=== PATIENT | female | born 1960 | race Caucasian/White ===

== ENCOUNTER → 2016-08-23 | Outpatient (REF) | payer OTHER ==
[~2016-08-23] MED LIST: AMOX875T PO; CIPR500T19; CLIN1CAP5 PO; FERR325T PO; FURO20TA2 PO; FURO40TA2 PO; IBUP60TA PO; IMOD2TAB16 PO; IRBE150T12 PO; LORA10TA2 PO; OMEP40CA2 PO; POTA10CA PO; PRIL40CA; PRIM50TA6 PO; PROP1TAB29 PO; RENV2TAB PO; TYLE650T35 PO; VICO5TAB; VITA10002 PO; VITA200038 PO; VITA50003 PO; ZOLP5TAB PO
[2016-08-23 11:35] LABS: BASO % 0.4 % (0.0-1.0); LARGE UNSTAINED CELL # 0.1 K/mm3 (0.0-0.4); LARGE UNSTAINED CELL % 1.2 % (0.0-4.0); LYMPH # 1.7 K/mm3 (1.5-4.5); LYMPH % 35.8 % (24.0-44.0); MEAN CORPUSCULAR HEMOGLOBIN 34.1 pg (27.0-33.0); MEAN CORPUSCULAR HGB CONC 34.2 g/dl (32.0-36.5); MEAN CORPUSCULAR VOLUME 99.9 fl (80.0-96.0); MONO # 0.2 K/mm3 (0.0-0.8); MONO % 4.8 % (0.0-5.0); NEUTROPHILS # 2.6 K/mm3 (1.8-7.7); NEUTROPHILS % 56.8 % (36.0-66.0); PLATELET COUNT, AUTOMATED 152 k/mm3 (150-450); RED CELL DISTRIBUTION WIDTH 12.8 % (11.5-14.5); WHITE BLOOD COUNT 4.5 K/mm3 (4.0-10.0)
[2016-08-23 11:38] LABS: ALBUMIN 3.6 GM/DL (3.2-5.2); ALBUMIN/GLOBULIN RATIO 1.06 (1.00-1.93); ALKALINE PHOSPHATASE 97 U/L (45-117); ALT/SGPT 29 U/L (12-78); ANION GAP 6 MEQ/L (8-16); AST/SGOT 37 U/L (15-37); BILIRUBIN,TOTAL 0.7 MG/DL (0.2-1.0); BLOOD UREA NITROGEN 7 MG/DL (7-18); CALCIUM LEVEL 9.4 MG/DL (8.5-10.1); CARBON DIOXIDE LEVEL 33 MEQ/L (21-32); CHLORIDE LEVEL 95 MEQ/L (98-107); CREATININE FOR GFR 0.65 MG/DL (0.55-1.02); GLOMERULAR FILTRATION RATE > 60.0 (>51); GLUCOSE, FASTING 126 MG/DL (70-105); PERCENT SATURATION 47.2 % (13.2-37.4); POTASSIUM SERUM 4.9 MEQ/L (3.5-5.1); SODIUM LEVEL 134 MEQ/L (136-145); TOTAL IRON BINDING CAPACITY 324 UG/DL (250-450)
== END ==
LOC: M SFHCPLAZ 07:57
PROVIDERS: ATTEND Nurse Practitioner Family
DX: D50.9 Iron deficiency anemia, unspecified (principal); I10 Essential (primary) hypertension

== ENCOUNTER → 2016-11-15 | Outpatient (CLI) | payer OTHER ==
[2016-11-15 13:05] LABS: ALBUMIN 3.4 GM/DL (3.2-5.2); ALBUMIN/GLOBULIN RATIO 0.92 (1.00-1.93); ALKALINE PHOSPHATASE 93 U/L (45-117); ALT/SGPT 35 U/L (12-78); ANION GAP 7 MEQ/L (8-16); AST/SGOT 43 U/L (15-37); BILIRUBIN,TOTAL 0.8 MG/DL (0.2-1.0); BLOOD UREA NITROGEN 4 MG/DL (7-18); CARBON DIOXIDE LEVEL 31 MEQ/L (21-32); CHLORIDE LEVEL 96 MEQ/L (98-107); CREATININE FOR GFR 0.68 MG/DL (0.55-1.02); GLOMERULAR FILTRATION RATE > 60.0 (>51); GLUCOSE, FASTING 125 MG/DL (70-105); POTASSIUM SERUM 4.7 MEQ/L (3.5-5.1); SODIUM LEVEL 134 MEQ/L (136-145); TOTAL PROTEIN 7.1 GM/DL (6.4-8.2)
== END ==
LOC: M WUC 08:37
PROVIDERS: ATTEND Nurse Practitioner Family
DX: R73.01 Impaired fasting glucose (principal); I10 Essential (primary) hypertension

== ENCOUNTER → 2017-01-02 | Outpatient (CLI) | payer OTHER ==
[~2017-01-02] MED LIST changes: +CLIN150C14 PO; -CLIN1CAP5 PO; +FERR1TAB8 PO; -FERR325T PO; +IBUP1TAB6 PO; -IBUP60TA PO; +VITA1CAP40 PO; -VITA50003 PO
--- NOTE | 2017-01-02 08:51 | REPMRS ---
Patient History The patient states she had a clinical breast exam in 01/10 Baseline Mammogram Patient is postmenopausal. Family history of colorectal cancer in father at age 50 or over, pancreatic cancer in sister under age 50, and pancreatic cancer in mother under age 50. Digital Woman Screen Mammo: January 02, 2017 - Exam #: [id number] Bilateral CC and XCCL view(s) were taken. MLO view(s) were taken of the right breast. Technologist: Dorothy Moore, Technologist FINDINGS: There are scattered fibroglandular densities. There is no evidence of cancer on this mammogram. Large coarse benign appearing calcifications are present.Scattered lymph nodes are seen in the axilla. ASSESSMENT: BI-RADS/ACR category 2 mammogram. Benign finding(s). Recommendation Routine screening mammogram of both breasts in 1 year (for women over age 40). This mammogram was interpreted with the aid of an FDA-approved computer-aided dectection system. Electronically Signed By: Jones Momin MD 01/02/17 0875
== END ==
LOC: M WHC 06:38
PROVIDERS: ATTEND Nurse Practitioner Family
DX: Z12.31 Encounter for screening mammogram for malignant neoplasm of breast (principal)

== ENCOUNTER → 2017-02-26 | Outpatient (REF) | payer OTHER | LOC: M LABDRAWP 11:30 | PROVIDERS: ATTEND Internal Medicine Cardiovascular Disease | DX: E78.5 Hyperlipidemia, unspecified (principal); I10 Essential (primary) hypertension; E66.9 Obesity, unspecified ==

== ENCOUNTER → 2017-09-26 | Outpatient (REF) | payer OTHER ==
[2017-09-26 11:42] LABS: BASO % 0.7 % (0.0-1.0); EOS % 0.7 % (0.0-3.0); HEMATOCRIT 42.8 % (36.0-47.0); HEMOGLOBIN 15.2 g/dl (12.0-15.5); IMMATURE GRANULOCYTE % 0.2 % (0-3.0); LYMPH # 1.6 10^3/uL (1.5-4.5); LYMPH % 37.4 % (24.0-44.0); MEAN CORPUSCULAR HEMOGLOBIN 34.5 pg (27.0-33.0); MEAN CORPUSCULAR HGB CONC 35.5 g/dl (32.0-36.5); MEAN CORPUSCULAR VOLUME 97.1 fl (80.0-96.0); MONO # 0.2 10^3/uL (0.0-0.8); MONO % 4.3 % (0.0-5.0); NEUTROPHILS # 2.5 10^3/uL (1.8-7.7); NEUTROPHILS % 56.7 % (36.0-66.0); PLATELET COUNT, AUTOMATED 159 10^3/uL (150-450); RED BLOOD COUNT 4.41 10^6/uL (4.00-5.40); RED CELL DISTRIBUTION WIDTH 11.9 % (11.5-14.5); WHITE BLOOD COUNT 4.4 10^3/uL (4.0-10.0)
[2017-09-26 12:17] LABS: ALBUMIN 3.7 GM/DL (3.2-5.2); ALBUMIN/GLOBULIN RATIO 1.09 (1.00-1.93); ALKALINE PHOSPHATASE 85 U/L (45-117); ALT/SGPT 22 U/L (12-78); ANION GAP 7 MEQ/L (8-16); AST/SGOT 21 U/L (7-37); BILIRUBIN,TOTAL 0.8 MG/DL (0.2-1.0); BLOOD UREA NITROGEN 8 MG/DL (7-18); CALCIUM LEVEL 8.6 MG/DL (8.5-10.1); CARBON DIOXIDE LEVEL 28 MEQ/L (21-32); CHLORIDE LEVEL 100 MEQ/L (98-107); CHOLESTEROL LEVEL 247 MG/DL (<200); CREATININE FOR GFR 0.66 MG/DL (0.55-1.30); FREE T4 0.97 NG/DL (0.76-1.46); GLOMERULAR FILTRATION RATE > 60.0 (>51); GLUCOSE, FASTING 109 MG/DL (70-100); IRON (FE) 206 UG/DL (50-170); PERCENT SATURATION 73.3 % (13.2-45.0); POTASSIUM SERUM 4.5 MEQ/L (3.5-5.1); SODIUM LEVEL 135 MEQ/L (136-145); TOTAL IRON BINDING CAPACITY 281 UG/DL (250-450); TOTAL PROTEIN 7.1 GM/DL (6.4-8.2); TRIGLYCERIDES LEVEL 69 MG/DL (<150)
[2017-09-26 13:09] LABS: CHOLESTEROL RISK RATIO 1.506 (<5); LDL CHOLESTEROL 69.2 MG/DL (<100); NON-HDL-C 83 MG/DL
[2017-09-26 13:23] LABS: HDL CHOLESTEROL 164 MG/DL (>40)
[2017-09-26 14:13] LABS: CREATININE, URINE 51.1 MG/DL; MALB URINE SIEMENS < 5.0 MG/L; MAU/CREAT RATIO 9.7 MCG/MG (0.0-30.0)
== END ==
LOC: M SFHCPLAZ 09:16
DX: E78.5 Hyperlipidemia, unspecified (principal); I10 Essential (primary) hypertension; D50.9 Iron deficiency anemia, unspecified
CPT/HCPCS: 83550

== ENCOUNTER → 2017-12-26 | Outpatient (CLI) | payer OTHER ==
[2017-12-30 00:06] LABS: F013-IGE PEANUT <0.10 kU/L (Class 0); I002-IgE HORNET, WHITE FACE 0.16 kU/L (Class 0/I); I003-IgE YELLOW JACKET 2.13 kU/L (Class III); I004-IgE PAPER WASP <0.10 kU/L (Class 0); I005-IgE HORNET, YELLOW <0.10 kU/L (Class 0)
== END ==
LOC: M SMT 10:29
DX: Z91.010 Allergy to peanuts (principal); T50.905A Adverse effect of unspecified drugs, medicaments and biological substances, initial encounter
CPT/HCPCS: 82785

== ENCOUNTER → 2018-02-20 | Outpatient (CLI) | payer OTHER ==
[2018-02-20 14:34] LABS: ALBUMIN 3.7 GM/DL (3.2-5.2); ALBUMIN/GLOBULIN RATIO 1.28 (1.00-1.93); ALKALINE PHOSPHATASE 83 U/L (45-117); ALT/SGPT 20 U/L (12-78); ANION GAP 8 MEQ/L (8-16); AST/SGOT 18 U/L (7-37); BILIRUBIN,TOTAL 0.5 MG/DL (0.2-1.0); BLOOD UREA NITROGEN 7 MG/DL (7-18); CALCIUM LEVEL 9.3 MG/DL (8.5-10.1); CARBON DIOXIDE LEVEL 29 MEQ/L (21-32); CHLORIDE LEVEL 103 MEQ/L (98-107); CREATININE FOR GFR 0.55 MG/DL (0.55-1.30); GLOMERULAR FILTRATION RATE > 60.0 (>51); GLUCOSE, FASTING 102 MG/DL (70-100); POTASSIUM SERUM 4.8 MEQ/L (3.5-5.1); SODIUM LEVEL 140 MEQ/L (136-145); TOTAL PROTEIN 6.6 GM/DL (6.4-8.2)
== END ==
LOC: M SMT 09:47
DX: I10 Essential (primary) hypertension (principal)
CPT/HCPCS: 80053

== ENCOUNTER 2018-05-06 07:00 | Outpatient (RCR) | payer OTHER ==
[~2018-05-06 07:00] MED LIST changes: +KLOR10TA76 PO; +LORA-243 PO; -LORA10TA2 PO; -POTA10CA PO; -PROP1TAB29 PO; +PROP20TA72 PO; -VITA1CAP40 PO; +VITA50005 PO
== END 2018-05-27 ==
LOC: M OT 07:00
PROVIDERS: ATTEND Physician Assistant
DX: M72.0 Palmar fascial fibromatosis [Dupuytren] (principal)

== ENCOUNTER → 2018-10-23 | Outpatient (CLI) | payer OTHER ==
[2018-10-23 12:51] LABS: HEMATOCRIT 40.7 % (36.0-47.0); HEMOGLOBIN 14.1 g/dl (12.0-15.5); MEAN CORPUSCULAR HEMOGLOBIN 34.4 pg (27.0-33.0); MEAN CORPUSCULAR HGB CONC 34.6 g/dl (32.0-36.5); MEAN CORPUSCULAR VOLUME 99.3 fl (80.0-96.0); PLATELET COUNT, AUTOMATED 150 10^3/uL (150-450); WHITE BLOOD COUNT 4.1 10^3/uL (4.0-10.0)
[2018-10-23 12:59] LABS: ALBUMIN 3.8 GM/DL (3.2-5.2); ALT/SGPT 15 U/L (12-78); BILIRUBIN,TOTAL 0.7 MG/DL (0.2-1.0); BLOOD UREA NITROGEN 7 MG/DL (7-18); CARBON DIOXIDE LEVEL 28 MEQ/L (21-32); CHLORIDE LEVEL 102 MEQ/L (98-107); CHOLESTEROL LEVEL 221 MG/DL (<200); CHOLESTEROL RISK RATIO 1.556 (<5); GLOMERULAR FILTRATION RATE > 60.0 (>51); GLUCOSE, FASTING 104 MG/DL (70-100); HDL CHOLESTEROL 142 MG/DL (>40); LDL CHOLESTEROL 67 MG/DL (<100); NON-HDL-C 79 MG/DL; POTASSIUM SERUM 4.6 MEQ/L (3.5-5.1); SODIUM LEVEL 136 MEQ/L (136-145); TOTAL PROTEIN 6.5 GM/DL (6.4-8.2); TRIGLYCERIDES LEVEL 60 MG/DL (<150)
[2018-10-23 13:07] LABS: TOTAL 25(OH) VITAMIN D 25.5 NG/ML (30.0-100.0); VITAMIN B12 LEVEL 977 PG/ML (247-911)
[2018-10-23 13:31] LABS: HEMOGLOBIN A1c 5.1 %
[2018-10-23 13:45] LABS: CREATININE, URINE 82.8 MG/DL; MAU/CREAT RATIO 8.4 MCG/MG (0.0-30.0)
== END ==
LOC: M WUC 08:36
PROVIDERS: ATTEND Family Medicine
DX: K21.9 Gastro-esophageal reflux disease without esophagitis (principal); I10 Essential (primary) hypertension; E78.5 Hyperlipidemia, unspecified; Z98.84 Bariatric surgery status

== ENCOUNTER → 2018-11-25 | Outpatient (REF) | payer OTHER ==
[~2018-11-25] MED LIST changes: +CYAN100049 PO; -VITA10002 PO
[2018-11-25 20:04] LABS: BASO % 0.5 % (0.0-1.0); EOS # 0.1 10^3/uL (0.0-0.50); EOS % 1.5 % (0.0-3.0); HEMATOCRIT 40.5 % (36.0-47.0); HEMOGLOBIN 13.8 g/dl (12.0-15.5); LYMPH # 1.7 10^3/uL (1.5-4.5); LYMPH % 42.1 % (24.0-44.0); MEAN CORPUSCULAR HEMOGLOBIN 34.2 pg (27.0-33.0); MEAN CORPUSCULAR HGB CONC 34.1 g/dl (32.0-36.5); MEAN CORPUSCULAR VOLUME 100.2 fl (80.0-96.0); MONO # 0.2 10^3/uL (0.0-0.8); MONO % 5.5 % (0.0-5.0); NEUTROPHILS % 50.1 % (36.0-66.0); PLATELET COUNT, AUTOMATED 138 10^3/uL (150-450); RED BLOOD COUNT 4.04 10^6/uL (4.00-5.40)
== END ==
LOC: M LAB REF 17:16
PROVIDERS: ATTEND Allergy & Immunology Allergy
DX: J45.40 Moderate persistent asthma, uncomplicated (principal)

== ENCOUNTER 2019-04-18 07:12 | Day surgery (SDC) | payer OTHER ==
[~2019-04-18] VITALS: Ht 165.1 cm; Wt 119.3 kg
[~2019-04-18 07:12] MED LIST changes: +CETI10CH PO; +MONT10TA2 PO; +NS 1,000 ML IV ONE; -OMEP40CA2 PO; +OMEP40CA97 PO; +SYMB16INH INH; +VENTAER INH
[2019-04-18] MEDS ORDERED: PROPOFOL 200 MG/20 ML VIAL As Ordered ONE ×4 (08:16→09:03)
[2019-04-18] MEDS ORDERED: LIDOCAINE 2% INJ 100 MG/5 ML SDV (FOR ANES.) As Ordered ONE (08:16)
[2019-04-18] MEDS ORDERED: NS 1,000 ML IV ONE (09:00)
--- NOTE | 2019-04-18 09:14 | ROOR ---
Patient Name: Sonu Mejia Procedure Date: 04/18/2019 8:30 AM Date of : 1960 Age: 58 Room: [facility] Gender: Female Note Status: Finalized Procedure: Colonoscopy Indications: High risk colon cancer surveillance: Personal history of colonic polyps, Last colonoscopy: December 2015 Providers: Owen SORTO MD Referring MD: [facility] OSITO Andrea [facility] Mahendra Requesting Provider: Medicines: Monitored Anesthesia Care Complications: No immediate complications. Procedure: Pre-Anesthesia Assessment: - The heart rate, respiratory rate, oxygen saturations, blood pressure, adequacy of pulmonary ventilation, and response to care were monitored throughout the procedure. The Colonoscope was introduced through the anus and advanced to the cecum, identified by appendiceal orifice and ileocecal valve. The colonoscopy was performed without difficulty. The patient tolerated the procedure well. The quality of the bowel preparation was good. Findings: The perianal and digital rectal examinations were normal. Three sessile polyps were found in the hepatic flexure, ascending colon and cecum. The polyps were 4 to 6 mm in size. These polyps were removed with a cold snare. Resection and retrieval were complete. A 3 mm polyp was found in the sigmoid colon. The polyp was sessile. The polyp was removed with a jumbo cold forceps. Resection and retrieval were complete. A 6 mm polyp was found in the recto-sigmoid colon. The polyp was semi-sessile. The polyp was removed with a cold snare. Resection and retrieval were complete. To prevent bleeding after the polypectomy, one hemostatic clip was successfully placed. There was no bleeding at the end of the procedure. Impression: - Three 4 to 6 mm polyps at the hepatic flexure, in the ascending colon and in the cecum, removed with a cold snare. Resected and retrieved. - One 3 mm polyp in the sigmoid colon, removed with a jumbo cold forceps. Resected and retrieved. - One 6 mm polyp at the recto-sigmoid colon, removed with a cold snare. Resected and retrieved. Clip was placed. Recommendation: - Repeat colonoscopy in 3 years for surveillance. Owen Sorto MD Owen SORTO MD 04/18/2019 9:14:39 AM Electronically signed by Owen SORTO MD Number of Addenda: 0 Note Initiated On: 04/18/2019 8:30 AM Estimated Blood Loss: Estimated blood loss: none.
[2019-04-18 09:32] VITALS: BP 145/67
== END 2019-04-18 09:43 | disposition home or self-care (01) ==
LOC: M OPP 07:12
PROVIDERS: ATTEND Internal Medicine Gastroenterology
DX: Z12.11 Encounter for screening for malignant neoplasm of colon (principal); Z86.010 Personal history of colon polyps; K63.5 Polyp of colon; Z79.899 Other long term (current) drug therapy; Z80.0 Family history of malignant neoplasm of digestive organs; Z80.1 Family history of malignant neoplasm of trachea, bronchus and lung; Z80.41 Family history of malignant neoplasm of ovary; Z88.8 Allergy status to other drugs, medicaments and biological substances; Z91.030 Bee allergy status

== ENCOUNTER → 2019-05-13 | Outpatient (REF) | payer OTHER ==
[~2019-05-13] MED LIST changes: -NS 1,000 ML IV ONE
[2019-05-13 13:50] LABS: BASO % 0.6 % (0.0-1.0); EOS % 0.8 % (0.0-3.0); HEMATOCRIT 40.9 % (36.0-47.0); HEMOGLOBIN 13.5 g/dl (12.0-15.5); LYMPH % 40.6 % (24.0-44.0); MEAN CORPUSCULAR HEMOGLOBIN 33.3 pg (27.0-33.0); MONO # 0.3 10^3/uL (0.0-0.8); MONO % 5.9 % (0.0-5.0); NEUTROPHILS # 2.5 10^3/uL (1.5-8.5); NEUTROPHILS % 51.7 % (36.0-66.0); PLATELET COUNT, AUTOMATED 184 10^3/uL (150-450); RED BLOOD COUNT 4.05 10^6/uL (4.00-5.40); WHITE BLOOD COUNT 4.9 10^3/uL (4.0-10.0)
[2019-05-13 14:01] LABS: INR 1.21; PROTHROMBIN TIME 15.1 SECONDS (11.8-14.0)
[2019-05-13 14:02] LABS: PARTIAL THROMBOPLASTIN TIME 27.2 SECONDS (25.0-38.4)
[2019-05-13 14:13] LABS: HEMOGLOBIN A1c 4.6 %
[2019-05-13 14:24] LABS: ALBUMIN 3.7 GM/DL (3.2-5.2); ALT/SGPT 14 U/L (12-78); BILIRUBIN,TOTAL 0.6 MG/DL (0.2-1.0); BLOOD UREA NITROGEN 9 MG/DL (7-18); CALCIUM LEVEL 9.1 MG/DL (8.5-10.1); CARBON DIOXIDE LEVEL 30 MEQ/L (21-32); CHLORIDE LEVEL 100 MEQ/L (98-107); CREATININE FOR GFR 0.63 MG/DL (0.55-1.30); FERRITIN 54 NG/ML (8-252); GLOMERULAR FILTRATION RATE > 60.0 (>51); GLUCOSE, FASTING 88 MG/DL (70-100); IRON (FE) 79 UG/DL (50-170); POTASSIUM SERUM 4.4 MEQ/L (3.5-5.1); SODIUM LEVEL 136 MEQ/L (136-145); TOTAL PROTEIN 6.8 GM/DL (6.4-8.2)
[2019-05-13 14:28] LABS: TOTAL 25(OH) VITAMIN D 31.6 NG/ML (30.0-100.0)
== END ==
LOC: M SFHCPLAZ 11:24
PROVIDERS: ATTEND Physician Assistant Medical
DX: E11.9 Type 2 diabetes mellitus without complications (principal); I10 Essential (primary) hypertension; Z98.84 Bariatric surgery status

== ENCOUNTER → 2019-08-26 | Outpatient (REF) | payer OTHER ==
[~2019-08-26] MED LIST changes: -IRBE150T12 PO; +IRBE150T7 PO; -MONT10TA2 PO; +MONT10TA4 PO
== END ==
LOC: M LAB REF 17:06
PROVIDERS: ATTEND Internal Medicine
DX: N39.0 Urinary tract infection, site not specified (principal)

== ENCOUNTER → 2019-10-08 | Outpatient (REF) | payer OTHER ==
[2019-10-08 10:16] LABS: EOS % 1.3 % (0.0-3.0); HEMATOCRIT 41.5 % (36.0-47.0); HEMOGLOBIN 14.3 g/dl (12.0-15.5); LYMPH # 1.2 10^3/uL (1.5-5.0); LYMPH % 39.3 % (24.0-44.0); MEAN CORPUSCULAR HEMOGLOBIN 33.3 pg (27.0-33.0); MEAN CORPUSCULAR HGB CONC 34.5 g/dl (32.0-36.5); MEAN CORPUSCULAR VOLUME 96.5 fl (80.0-96.0); MONO # 0.2 10^3/uL (0.0-0.8); MONO % 6.6 % (0.0-5.0); NEUTROPHILS # 1.6 10^3/uL (1.5-8.5); NEUTROPHILS % 51.5 % (36.0-66.0); PLATELET COUNT, AUTOMATED 145 10^3/uL (150-450)
[2019-10-08 10:30] LABS: FOLATE 7.3 NG/ML (>5.4); PTH INTACT 102.4 PG/ML (18.5-88.0); TOTAL 25(OH) VITAMIN D 17.6 NG/ML (30.0-100.0)
== END ==
LOC: M SFHCPLAZ 08:23
PROVIDERS: ATTEND Physician Assistant Medical
DX: E53.8 Deficiency of other specified B group vitamins (principal); E55.9 Vitamin D deficiency, unspecified

== ENCOUNTER → 2020-04-01 | Outpatient (REF) | payer OTHER ==
[~2020-04-01] MED LIST changes: +ACET650T61 PO; -TYLE650T35 PO
[2020-04-01 14:06] LABS: BASO % 0.8 % (0.0-1.0); EOS # 0.1 10^3/uL (0.0-0.5); EOS % 2.2 % (0.0-3.0); LYMPH # 1.5 10^3/uL (1.5-5.0); LYMPH % 28.9 % (24.0-44.0); MEAN CORPUSCULAR HEMOGLOBIN 32.7 pg (27.0-33.0); MEAN CORPUSCULAR HGB CONC 32.5 g/dl (32.0-36.5); MEAN CORPUSCULAR VOLUME 100.8 fl (80.0-96.0); MONO # 0.4 10^3/uL (0.0-0.8); MONO % 6.9 % (0.0-5.0); NEUTROPHILS # 3.1 10^3/uL (1.5-8.5); NEUTROPHILS % 60.8 % (36.0-66.0); PLATELET COUNT, AUTOMATED 177 10^3/uL (150-450); RED BLOOD COUNT 3.97 10^6/uL (4.00-5.40); WHITE BLOOD COUNT 5.1 10^3/uL (4.0-10.0)
[2020-04-01 14:35] LABS: ALBUMIN 3.6 GM/DL (3.2-5.2); ALT/SGPT 24 U/L (12-78); BILIRUBIN,TOTAL 0.6 MG/DL (0.2-1.0); BLOOD UREA NITROGEN 9 MG/DL (7-18); CALCIUM LEVEL 9.2 MG/DL (8.5-10.1); CARBON DIOXIDE LEVEL 30 MEQ/L (21-32); CHLORIDE LEVEL 100 MEQ/L (98-107); FERRITIN 39 NG/ML (8-252); GLOMERULAR FILTRATION RATE > 60.0 (>51); GLUCOSE, FASTING 101 MG/DL (70-100); IRON (FE) 53 UG/DL (50-170); POTASSIUM SERUM 4.3 MEQ/L (3.5-5.1); SODIUM LEVEL 134 MEQ/L (136-145); TOTAL PROTEIN 6.8 GM/DL (6.4-8.2)
[2020-04-01 14:40] LABS: PTH INTACT 77.3 PG/ML (18.5-88.0); TOTAL 25(OH) VITAMIN D 39.4 NG/ML (30.0-100.0); VITAMIN B12 LEVEL 1450 PG/ML (247-911)
[2020-04-01 14:41] LABS: FOLATE 19.6 NG/ML (>5.4)
[2020-04-01 15:02] LABS: HEMOGLOBIN A1c 5.3 %
== END ==
LOC: M SFHCPLAZ 10:39
PROVIDERS: ATTEND Physician Assistant Medical
DX: F10.10 Alcohol abuse, uncomplicated (principal); D72.819 Decreased white blood cell count, unspecified; I10 Essential (primary) hypertension; E11.9 Type 2 diabetes mellitus without complications; E55.9 Vitamin D deficiency, unspecified; D50.9 Iron deficiency anemia, unspecified

== ENCOUNTER → 2021-10-03 | Outpatient (CLI) | payer OTHER ==
[~2021-10-03] MED LIST changes: -CLIN150C14 PO; +CLIN150C17 PO; -KLOR10TA76 PO; -MONT10TA4 PO; +MONT10TA97 PO; +OMEP40CA4 PO; -OMEP40CA97 PO; +POTA-136 PO
[2021-10-03 10:58] LABS: HEMATOCRIT 37.4 % (36.0-47.0); HEMOGLOBIN 12.5 g/dl (12.0-15.5); MEAN CORPUSCULAR HEMOGLOBIN 31.7 pg (27.0-33.0); MEAN CORPUSCULAR HGB CONC 33.4 g/dl (32.0-36.5); MEAN CORPUSCULAR VOLUME 94.9 fl (80.0-96.0); PLATELET COUNT, AUTOMATED 168 10^3/uL (150-450); RED BLOOD COUNT 3.94 10^6/uL (4.00-5.40); WHITE BLOOD COUNT 3.6 10^3/uL (4.0-10.0)
[2021-10-03 14:23] LABS: ALBUMIN 3.4 GM/DL (3.2-5.2); ALT/SGPT 30 U/L (12-78); BILIRUBIN,TOTAL 0.7 MG/DL (0.2-1.0); BLOOD UREA NITROGEN 7 MG/DL (7-18); CARBON DIOXIDE LEVEL 33 MEQ/L (21-32); CHLORIDE LEVEL 93 MEQ/L (98-107); CHOLESTEROL LEVEL 174 MG/DL (<200); CHOLESTEROL RISK RATIO 1.722 (<5); CREATININE FOR GFR 0.59 MG/DL (0.55-1.30); FERRITIN 31 NG/ML (8-252); GLOMERULAR FILTRATION RATE > 60.0 (>45); GLUCOSE, FASTING 135 MG/DL (70-100); HDL CHOLESTEROL 101 MG/DL (>40); IRON (FE) 63 UG/DL (50-170); LDL CHOLESTEROL 62 MG/DL (<100); NON-HDL-C 73 MG/DL; PERCENT SATURATION 17.8 % (13.2-45.0); PHOSPHORUS LEVEL 3.9 MG/DL (2.5-4.9); POTASSIUM SERUM 4.3 MEQ/L (3.5-5.1); SODIUM LEVEL 129 MEQ/L (136-145); TOTAL 25(OH) VITAMIN D 41.1 NG/ML (30.0-100.0); TOTAL IRON BINDING CAPACITY 353 UG/DL (250-450); TOTAL PROTEIN 6.8 GM/DL (6.4-8.2); TRIGLYCERIDES LEVEL 57 MG/DL (<150); VITAMIN B12 LEVEL 1145 PG/ML
== END ==
LOC: M WUC 08:48
PROVIDERS: ATTEND Family Medicine
DX: Z98.84 Bariatric surgery status (principal); E11.9 Type 2 diabetes mellitus without complications

== ENCOUNTER → 2021-11-04 | Outpatient (CLI) | payer OTHER ==
[2021-11-04 17:08] LABS: OSMOLALITY SERUM 273 MOSM/KG (280-301)
[2021-11-04 17:16] LABS: ALBUMIN 3.6 GM/DL (3.2-5.2); ALT/SGPT 39 U/L (12-78); BILIRUBIN,TOTAL 0.7 MG/DL (0.2-1.0); BLOOD UREA NITROGEN 7 MG/DL (7-18); CALCIUM LEVEL 9.5 MG/DL (8.8-10.2); CARBON DIOXIDE LEVEL 33 MEQ/L (21-32); CHLORIDE LEVEL 91 MEQ/L (98-107); GLOMERULAR FILTRATION RATE > 60.0 (>45); GLUCOSE, FASTING 136 MG/DL (70-100); POTASSIUM SERUM 4.2 MEQ/L (3.5-5.1); SODIUM LEVEL 130 MEQ/L (136-145); TOTAL PROTEIN 7.4 GM/DL (6.4-8.2)
== END ==
LOC: M WUC 11:10
PROVIDERS: ATTEND Family Medicine
DX: E87.1 Hypo-osmolality and hyponatremia (principal); R63.5 Abnormal weight gain; R60.9 Edema, unspecified

== ENCOUNTER → 2022-12-22 | Outpatient (CLI) | payer OTHER ==
[2022-12-22 17:02] LABS: BASO % 0.7 % (0.0-1.0); EOS % 0.7 % (0.0-3.0); HEMATOCRIT 38.4 % (36.0-47.0); HEMOGLOBIN 13.3 g/dl (12.0-15.5); LYMPH # 0.9 10^3/uL (1.5-5.0); LYMPH % 20.3 % (24.0-44.0); MEAN CORPUSCULAR HEMOGLOBIN 33.9 pg (27.0-33.0); MEAN CORPUSCULAR HGB CONC 34.6 g/dl (32.0-36.5); MONO # 0.2 10^3/uL (0.0-0.8); MONO % 5.2 % (2.0-8.0); NEUTROPHILS # 3.1 10^3/uL (1.5-8.5); NEUTROPHILS % 72.6 % (36.0-66.0); PLATELET COUNT, AUTOMATED 164 10^3/uL (150-450); RED BLOOD COUNT 3.92 10^6/uL (4.00-5.40); WHITE BLOOD COUNT 4.2 10^3/uL (4.0-10.0)
[2022-12-22 17:14] LABS: HEMOGLOBIN A1c 5.3 % (4.0-6.0)
[2022-12-22 17:25] LABS: IRON (FE) 101 UG/DL (50-170); PERCENT SATURATION 30.5 % (13.2-45.0); TOTAL IRON BINDING CAPACITY 331 UG/DL (250-425)
[2022-12-22 17:26] LABS: CREATININE, URINE 68.1 MG/DL; MALB URINE SIEMENS < 3.0 MG/L; MAU/CREAT RATIO 4.4 MCG/MG (0.0-30.0)
[2022-12-22 17:30] LABS: ALBUMIN 3.6 G/DL (3.2-5.2); ALKALINE PHOSPHATASE 88 U/L (46-116); ALT/SGPT 33 U/L (7.0-40); AST/SGOT 59 U/L (<34); BILIRUBIN,TOTAL 1.2 MG/DL (0.3-1.2); BLOOD UREA NITROGEN 7 MG/DL (9-23); CARBON DIOXIDE LEVEL 31 MMOL/L (20-31); CHLORIDE LEVEL 90 MMOL/L (98-107); CHOLESTEROL LEVEL 186 MG/DL (<200); CHOLESTEROL RISK RATIO 1.84 (<5); CREATININE FOR GFR 0.65 MG/DL (0.55-1.30); FERRITIN 45.9 NG/ML (7.3-270.7); FOLATE > 24.00 NG/ML (>5.4); GLOMERULAR FILTRATION RATE > 60.0 (>45); GLUCOSE, FASTING 125 MG/DL (74-106); HDL CHOLESTEROL 100.8 MG/DL (>40); LDL CHOLESTEROL 73.4 MG/DL (<100); NON-HDL-C 85.2 MG/DL; POTASSIUM SERUM 4.2 MMOL/L (3.5-5.1); SODIUM LEVEL 129 MMOL/L (136-145); THYROID STIMULATING HORMONE 6.864 uIU/ML (0.55-4.78); TOTAL 25(OH) VITAMIN D 58.9 NG/ML (20.0-100.0); TOTAL PROTEIN 6.8 G/DL (5.7-8.2); TRIGLYCERIDES LEVEL 59 MG/DL (<150); VITAMIN B12 LEVEL 1527 PG/ML (211-911)
== END ==
LOC: M WUC 13:17
PROVIDERS: ATTEND Family Medicine
DX: Z98.84 Bariatric surgery status (principal); E11.9 Type 2 diabetes mellitus without complications; E07.9 Disorder of thyroid, unspecified

== ENCOUNTER 2024-06-20 17:24 | Inpatient (IN) | payer OTHER, SELFPAY ==
[~2024-06-20] VITALS: Ht 167.6 cm; Wt 147.0 kg
[~2024-06-20 17:24] MED LIST changes: +IRBE150T27 PO; -IRBE150T7 PO
[2024-06-20] MEDS ORDERED: TORS20TA2 PO (17:43)
[2024-06-20 18:55] LABS: BASO % 0.7 % (0.0-1.0); HEMATOCRIT 35.7 % (36.0-47.0); HEMOGLOBIN 11.9 g/dl (12.0-15.5); LYMPH # 1.1 10^3/uL (1.5-5.0); LYMPH % 25.7 % (24.0-44.0); MEAN CORPUSCULAR HEMOGLOBIN 35.3 pg (27.0-33.0); MEAN CORPUSCULAR HGB CONC 33.3 g/dl (32.0-36.5); MEAN CORPUSCULAR VOLUME 105.9 fl (80.0-96.0); MONO # 0.2 10^3/uL (0.0-0.8); MONO % 5.5 % (2.0-8.0); NEUTROPHILS # 2.8 10^3/uL (1.5-8.5); NEUTROPHILS % 66.6 % (36.0-66.0); PLATELET COUNT, AUTOMATED 115 10^3/uL (150-450); RED BLOOD COUNT 3.37 10^6/uL (4.00-5.40); WHITE BLOOD COUNT 4.2 10^3/uL (4.0-10.0)
[2024-06-20 19:13] LABS: INR 1.21; PROTHROMBIN TIME 15.6 SECONDS (12.5-14.5)
[2024-06-20 19:20] LABS: LIPASE 17 U/L (12-53)
[2024-06-20 19:32] LABS: ALKALINE PHOSPHATASE 107 U/L (35-104); ALT/SGPT 32 U/L (7.0-40); AST/SGOT 103 U/L (<34); BILIRUBIN,DIRECT 0.8 MG/DL (<0.4); BILIRUBIN,TOTAL 1.3 MG/DL (0.3-1.2); BLOOD UREA NITROGEN < 5 MG/DL (9-23); CALCIUM LEVEL 8.1 MG/DL (8.3-10.6); CARBON DIOXIDE LEVEL 27 MMOL/L (20-31); CHLORIDE LEVEL 100 MMOL/L (98-107); CREATININE FOR GFR 0.44 MG/DL (0.55-1.30); GLOMERULAR FILTRATION RATE > 60.0 (>45); GLUCOSE, FASTING 126 MG/DL (74-106); POTASSIUM SERUM 3.8 MMOL/L (3.5-5.1); SODIUM LEVEL 132 MMOL/L (136-145)
[2024-06-20 20:46] LABS: KETONE, URINE AUTO RFX NEGATIVE (NEGATIVE); LEUKOCYTE ESTERASE UR AUTO RFX NEGATIVE (NEGATIVE); NITRITE, URINE AUTO RFX NEGATIVE (NEGATIVE); RBC, URINE AUTO RFX 1 /HPF (0-3); SQUAM EPITHELIAL CELL UR AURFX 0 /HPF (0-6); WBC, URINE AUTO RFX 0 /HPF (0-3)
[2024-06-20 22:49] LABS: HEMATOCRIT 33.7 % (36.0-47.0); HEMOGLOBIN 11.3 g/dl (12.0-15.5); MEAN CORPUSCULAR HEMOGLOBIN 35.3 pg (27.0-33.0); MEAN CORPUSCULAR HGB CONC 33.5 g/dl (32.0-36.5); MEAN CORPUSCULAR VOLUME 105.3 fl (80.0-96.0); PLATELET COUNT, AUTOMATED 117 10^3/uL (150-450); WHITE BLOOD COUNT 4.7 10^3/uL (4.0-10.0)
[2024-06-20] MEDS: NS (Normal Saline) 0.9% 1,000 ML IV ONE (23:10)
[2024-06-21] VITALS (11 sets, daily range): BP systolic 93–137; BP diastolic 49–91; TEMP 97–97.7; O2SAT 91–97
[2024-06-21] MEDS: TRANEXAMIC ACID 650MG TABLET (LYSTEDA) PO ONE (00:04)
[2024-06-21] MEDS ORDERED: GLUCAGON INJ 1MG VIAL SC PRN (01:05)
[2024-06-21] MEDS ORDERED: DEXTROSE 50% 50ML SYRINGE IV PRN (01:05)
[2024-06-21] MEDS ORDERED: GLUCOSE 4 GM CHEW PO PRN (01:05)
[2024-06-21] MEDS: LR 1,000 ML IV SCH (01:38)
[2024-06-21] MEDS ORDERED: VITAD1000T PO (02:16)
[2024-06-21] MEDS ORDERED: POTA-151 PO (02:16)
[2024-06-21] MEDS ORDERED: MILK175C6 PO (02:16)
[2024-06-21] MEDS ORDERED: OMEG10002 PO (02:16)
[2024-06-21] MEDS ORDERED: OMEP40CA5 PO (02:17)
[2024-06-21] MEDS ORDERED: HOME MED LIST COMPLETE! XX SCH (02:20)
[2024-06-21] MEDS: ALBUTEROL 90 MCG/ACT 8GM HFA INHALER INH ONE (02:55)
[2024-06-21 06:07] LABS: HEMATOCRIT 35.6 % (36.0-47.0); HEMOGLOBIN 12.1 g/dl (12.0-15.5); MEAN CORPUSCULAR HEMOGLOBIN 35.6 pg (27.0-33.0); MEAN CORPUSCULAR VOLUME 104.7 fl (80.0-96.0); PLATELET COUNT, AUTOMATED 116 10^3/uL (150-450); WHITE BLOOD COUNT 4.8 10^3/uL (4.0-10.0)
[2024-06-21] MEDS: INSULIN LISPRO (NovoLOG) PER UNIT SC SCH (07:30)
[2024-06-21] MEDS ORDERED: SYMBICORT 160/4.5MCG INHALER 6GM INH SCH (08:00)
[2024-06-21] MEDS ORDERED: ONDANSETRON 4MG 2ML VIAL IV PRN ×2 (08:30→14:45)
[2024-06-21] MEDS ORDERED: HYDROMORPHONE HCL 0.5 MG/ 0.5 ML SYRINGE IV PRN ×2 (08:30)
[2024-06-21] MEDS ORDERED: MEPERIDINE 25 MG/ML 1ML VIAL IV PRN (08:30)
[2024-06-21] MEDS ORDERED: oxyCODONE 5MG TAB PO PRN (08:30)
[2024-06-21] MEDS: PROPRANOLOL 20 MG TAB PO SCH (09:00)
[2024-06-21] MEDS ORDERED: FUROSEMIDE 40 MG TAB PO SCH (09:00)
[2024-06-21] MEDS ORDERED: MONTELUKAST 10 MG TAB PO SCH (09:00)
[2024-06-21] MEDS ORDERED: LIDOCAINE 2% 100MG/5ML SDV (FOR ANES.) As Ordered ONE (13:26)
[2024-06-21] MEDS ORDERED: fentaNYL 100 MCG/2 ML INJECTION As Ordered ONE (13:26)
[2024-06-21] MEDS ORDERED: propofoL 200 MG/20 ML VIAL As Ordered ONE (13:26)
[2024-06-21] MEDS ORDERED: ONDANSETRON 4MG 2ML VIAL As Ordered ONE (13:26)
[2024-06-21] MEDS ORDERED: MIDAZOLAM INJ 2MG/2ML VIAL As Ordered ONE (13:26)
[2024-06-21] MEDS ORDERED: ROCURONIUM BROMIDE 50MG/5ML VIAL As Ordered ONE (13:26)
[2024-06-21] MEDS: OMEPRAZOLE 20MG CAP PO SCH (14:21)
[2024-06-21] MEDS: TORSEMIDE 20 MG TAB PO SCH (15:34)
[2024-06-21] MEDS: POTASSIUM CHLORIDE 10MEQ SR TABLET PO SCH (15:34)
[2024-06-21] MEDS: KETOROLAC 30 MG/ML 1ML VIAL IV SCH (15:36)
[2024-06-22] VITALS (20 sets, daily range): BP systolic 80–110; BP diastolic 34–58; TEMP 97.5–100.2; O2SAT 89–100
[2024-06-22 09:13] LABS: HEMATOCRIT 31.9 % (36.0-47.0); HEMOGLOBIN 10.4 g/dl (12.0-15.5); MEAN CORPUSCULAR HEMOGLOBIN 35.7 pg (27.0-33.0); MEAN CORPUSCULAR HGB CONC 32.6 g/dl (32.0-36.5); MEAN CORPUSCULAR VOLUME 109.6 fl (80.0-96.0); PLATELET COUNT, AUTOMATED 103 10^3/uL (150-450); RED BLOOD COUNT 2.91 10^6/uL (4.00-5.40); WHITE BLOOD COUNT 4.3 10^3/uL (4.0-10.0)
[2024-06-22] MEDS: LR 1,000 ML IV ONE ×4 (10:38→12:49)
[2024-06-22] MEDS ORDERED: LORazepam 2 MG TAB PO PRN (10:50)
[2024-06-22 11:12] LABS: PROCALCITONIN 0.35 ng/ml
[2024-06-22 11:18] LABS: ALBUMIN 1.5 G/DL (3.2-5.2); ALKALINE PHOSPHATASE 82 U/L (35-104); ALT/SGPT 27 U/L (7.0-40); AST/SGOT 83 U/L (<34); BILIRUBIN,DIRECT 0.9 MG/DL (<0.4); BILIRUBIN,TOTAL 1.5 MG/DL (0.3-1.2); BLOOD UREA NITROGEN 5 MG/DL (9-23); CALCIUM LEVEL 7.8 MG/DL (8.3-10.6); CARBON DIOXIDE LEVEL 30 MMOL/L (20-31); CHLORIDE LEVEL 104 MMOL/L (98-107); CREATININE FOR GFR 0.74 MG/DL (0.55-1.30); GLOMERULAR FILTRATION RATE > 60.0 (>45); GLUCOSE, FASTING 123 MG/DL (74-106); POTASSIUM SERUM 4.4 MMOL/L (3.5-5.1); SODIUM LEVEL 135 MMOL/L (136-145); TOTAL PROTEIN 4.7 G/DL (5.7-8.2)
[2024-06-22 11:39] LABS: HEMOGLOBIN A1c 4.7 % (4.0-6.0)
[2024-06-22] MEDS: THIAMINE 100 MG TAB PO SCH (11:43)
[2024-06-22] MEDS: FOLIC ACID 1MG TAB PO SCH (11:43)
[2024-06-22] MEDS: MULTIVITAMINS/MINERALS THERAP 1 TAB PO SCH (11:43)
[2024-06-22] MEDS ORDERED: CEFEPIME HCL 2 GM in DEXTROSE 5% (D5W) ADV/MINI-BAG 50 ML IV SCH (12:00)
[2024-06-22] MEDS ORDERED: FLUID PLACE HOLDER IV SCH (12:00)
[2024-06-22] MEDS ORDERED: VANCOMYCIN HCL IV SCH (12:00)
[2024-06-22 12:34] LABS: HEMOGLOBIN 10.2 g/dl (12.0-15.5); MEAN CORPUSCULAR HEMOGLOBIN 35.3 pg (27.0-33.0); MEAN CORPUSCULAR HGB CONC 31.9 g/dl (32.0-36.5); MEAN CORPUSCULAR VOLUME 110.7 fl (80.0-96.0); PLATELET COUNT, AUTOMATED 103 10^3/uL (150-450); RED BLOOD COUNT 2.89 10^6/uL (4.00-5.40); WHITE BLOOD COUNT 3.9 10^3/uL (4.0-10.0)
[2024-06-22 13:08] LABS: BASO % 0.5 % (0.0-1.0); LYMPH # 0.7 10^3/uL (1.5-5.0); LYMPH % 16.8 % (24.0-44.0); MONO # 0.3 10^3/uL (0.0-0.8); MONO % 7.1 % (2.0-8.0); NEUTROPHILS # 2.9 10^3/uL (1.5-8.5); NEUTROPHILS % 74.3 % (36.0-66.0)
[2024-06-22] MEDS: CEFEPIME HCL 2 GM in DEXTROSE 5% (D5W) ADV/MINI-BAG 50 ML IV SCH (13:10)
[2024-06-22 13:13] LABS: PLATELET ESTIMATE DECREASED (NORMAL)
[2024-06-22] MEDS ORDERED: ISOVUE-370 76% 100ML VIAL As Ordered ONE (14:05)
[2024-06-22] MEDS: metroNIDAZOLE 500 MG in IV 1 EA IV SCH (14:06)
[2024-06-22] MEDS: VANCOMYCIN HCL 2,000 MG, VIAL MATE ADAPTER 1 EACH in NS 500 ML IV ONE (16:12)
[2024-06-22 16:17] LABS: KETONE, URINE AUTO RFX NEGATIVE (NEGATIVE); MUCUS, URINE RFX SMALL (NEGATIVE); NITRITE, URINE AUTO RFX NEGATIVE (NEGATIVE); RBC, URINE AUTO RFX 13 /HPF (0-3); SQUAM EPITHELIAL CELL UR AURFX 6 /HPF (0-6)
[2024-06-22 16:18] LABS: LEUKOCYTE ESTERASE UR AUTO RFX 2+ (NEGATIVE); WBC, URINE AUTO RFX TNTC /HPF (0-3)
[2024-06-22 17:39] LABS: BLOOD UREA NITROGEN 6 MG/DL (9-23); CALCIUM LEVEL 7.5 MG/DL (8.3-10.6); CARBON DIOXIDE LEVEL 30 MMOL/L (20-31); CHLORIDE LEVEL 99 MMOL/L (98-107); CREATININE FOR GFR 0.82 MG/DL (0.55-1.30); GLOMERULAR FILTRATION RATE > 60.0 (>45); GLUCOSE, FASTING 113 MG/DL (74-106); POTASSIUM SERUM 4.4 MMOL/L (3.5-5.1); SODIUM LEVEL 135 MMOL/L (136-145)
[2024-06-22] MEDS: INSULIN LISPRO (NovoLOG) PER UNIT SC SCH (21:00)
[2024-06-23] VITALS (14 sets, daily range): BP systolic 92–115; BP diastolic 50–60; TEMP 98.1–99.6; O2SAT 87–100
[2024-06-23] MEDS: VANCOMYCIN HCL 1,000 MG, VIAL MATE ADAPTER 1 EACH in NS 250 ML IV SCH (00:29)
[2024-06-23 06:57] LABS: VANCOMYCIN LEVEL TROUGH 20.1 UG/ML (10.0-20.0)
[2024-06-23 07:55] LABS: BASO % 0.5 % (0.0-1.0); EOS % 0.8 % (0.0-3.0); HEMATOCRIT 29.3 % (36.0-47.0); HEMOGLOBIN 9.3 g/dl (12.0-15.5); LYMPH # 0.8 10^3/uL (1.5-5.0); LYMPH % 21.1 % (24.0-44.0); MEAN CORPUSCULAR HEMOGLOBIN 35.5 pg (27.0-33.0); MEAN CORPUSCULAR HGB CONC 31.7 g/dl (32.0-36.5); MEAN CORPUSCULAR VOLUME 111.8 fl (80.0-96.0); MONO # 0.3 10^3/uL (0.0-0.8); MONO % 6.9 % (2.0-8.0); NEUTROPHILS # 2.8 10^3/uL (1.5-8.5); NEUTROPHILS % 70.2 % (36.0-66.0); RED BLOOD COUNT 2.62 10^6/uL (4.00-5.40); WHITE BLOOD COUNT 3.9 10^3/uL (4.0-10.0)
[2024-06-23 08:05] LABS: C REACTIVE PROTEIN QUANTITATIV 2.09 MG/DL (<1.0)
[2024-06-23 08:07] LABS: ALBUMIN 2.3 G/DL (3.2-5.2); ALKALINE PHOSPHATASE 75 U/L (35-104); ALT/SGPT 25 U/L (7.0-40); AST/SGOT 89 U/L (<34); BILIRUBIN,DIRECT 1.1 MG/DL (<0.4); BILIRUBIN,TOTAL 1.5 MG/DL (0.3-1.2); BLOOD UREA NITROGEN 7 MG/DL (9-23); CALCIUM LEVEL 7.9 MG/DL (8.3-10.6); CARBON DIOXIDE LEVEL 29 MMOL/L (20-31); CHLORIDE LEVEL 100 MMOL/L (98-107); CREATININE FOR GFR 0.79 MG/DL (0.55-1.30); GLOMERULAR FILTRATION RATE > 60.0 (>45); GLUCOSE, FASTING 107 MG/DL (74-106); POTASSIUM SERUM 4.3 MMOL/L (3.5-5.1); SODIUM LEVEL 135 MMOL/L (136-145); TOTAL PROTEIN 5.3 G/DL (5.7-8.2)
[2024-06-23 08:15] LABS: ERYTHROCYTE SEDIMENTATION RATE 14 mm/hr (0-30)
[2024-06-23 08:39] LABS: PLATELET COUNT, AUTOMATED 89 10^3/uL (150-450)
[2024-06-23] MEDS: MIRALAX *UNIT DOSE* 17GM PACKET PO SCH (09:18)
[2024-06-23] MEDS: METAMUCIL (PSYLLIUM) PACKET PO SCH (09:20)
[2024-06-23] MEDS ORDERED: VANCOMYCIN HCL 1,250 MG, VIAL MATE ADAPTER 1 EACH in NS 250 ML IV SCH (10:00)
[2024-06-23] MEDS ORDERED: LORATADINE 10 MG TAB PO PRN (11:25)
[2024-06-23] MEDS: metroNIDAZOLE (FLAGYL) 500MG TABLET PO SCH (14:46)
[2024-06-24 04:18] VITALS: BP 99/55; TEMP 98.8; O2SAT 99
[2024-06-24 07:37] VITALS: BP 112/55; TEMP 97.7; O2SAT 100
[2024-06-24 08:36] LABS: HEMATOCRIT 31.4 % (36.0-47.0); HEMOGLOBIN 9.9 g/dl (12.0-15.5); MEAN CORPUSCULAR HEMOGLOBIN 35.2 pg (27.0-33.0); MEAN CORPUSCULAR HGB CONC 31.5 g/dl (32.0-36.5); MEAN CORPUSCULAR VOLUME 111.7 fl (80.0-96.0); RED BLOOD COUNT 2.81 10^6/uL (4.00-5.40); WHITE BLOOD COUNT 3.6 10^3/uL (4.0-10.0)
[2024-06-24 08:39] LABS: PLATELET COUNT, AUTOMATED 96 10^3/uL (150-450)
[2024-06-24 09:05] LABS: BLOOD UREA NITROGEN 7 MG/DL (9-23); CALCIUM LEVEL 7.9 MG/DL (8.3-10.6); CARBON DIOXIDE LEVEL 31 MMOL/L (20-31); CHLORIDE LEVEL 98 MMOL/L (98-107); CREATININE FOR GFR 0.62 MG/DL (0.55-1.30); GLOMERULAR FILTRATION RATE > 60.0 (>45); GLUCOSE, FASTING 94 MG/DL (74-106); POTASSIUM SERUM 3.7 MMOL/L (3.5-5.1); SODIUM LEVEL 135 MMOL/L (136-145)
[2024-06-24] MEDS: VITAMIN D 1,000 INTERNATIONAL UNITS TABLET PO SCH (09:49)
[2024-06-24] MEDS: OMEGA-3 1000MG CAPSULE PO SCH (09:50)
[2024-06-24 11:52] VITALS: BP 104/55; TEMP 97.9; O2SAT 99
[2024-06-24 13:40] VITALS: O2SAT 93
[2024-06-24 15:53] VITALS: BP 114/62; TEMP 97.9; O2SAT 95
[2024-06-24 20:20] VITALS: BP 126/74; TEMP 97.7; O2SAT 94
[2024-06-25] VITALS (7 sets, daily range): BP systolic 115–126; BP diastolic 57–66; TEMP 96.8–98.8; O2SAT 93–99
[2024-06-25 05:44] LABS: HEMATOCRIT 29.9 % (36.0-47.0); HEMOGLOBIN 9.9 g/dl (12.0-15.5); MEAN CORPUSCULAR HEMOGLOBIN 35.6 pg (27.0-33.0); MEAN CORPUSCULAR HGB CONC 33.1 g/dl (32.0-36.5); MEAN CORPUSCULAR VOLUME 107.6 fl (80.0-96.0); PLATELET COUNT, AUTOMATED 109 10^3/uL (150-450); RED BLOOD COUNT 2.78 10^6/uL (4.00-5.40); WHITE BLOOD COUNT 3.5 10^3/uL (4.0-10.0)
[2024-06-25 06:12] LABS: BLOOD UREA NITROGEN 5 MG/DL (9-23); CALCIUM LEVEL 8.4 MG/DL (8.3-10.6); CARBON DIOXIDE LEVEL 30 MMOL/L (20-31); CHLORIDE LEVEL 99 MMOL/L (98-107); CREATININE FOR GFR 0.46 MG/DL (0.55-1.30); GLOMERULAR FILTRATION RATE > 60.0 (>45); GLUCOSE, FASTING 101 MG/DL (74-106); POTASSIUM SERUM 3.7 MMOL/L (3.5-5.1); SODIUM LEVEL 135 MMOL/L (136-145)
[2024-06-26 04:18] VITALS: BP 110/62; TEMP 96.9; O2SAT 96
[2024-06-26 06:51] LABS: MEAN CORPUSCULAR HEMOGLOBIN 35.5 pg (27.0-33.0); MEAN CORPUSCULAR HGB CONC 33.3 g/dl (32.0-36.5); MEAN CORPUSCULAR VOLUME 106.4 fl (80.0-96.0); PLATELET COUNT, AUTOMATED 107 10^3/uL (150-450); RED BLOOD COUNT 2.82 10^6/uL (4.00-5.40); WHITE BLOOD COUNT 3.2 10^3/uL (4.0-10.0)
[2024-06-26 07:06] LABS: BLOOD UREA NITROGEN < 5 MG/DL (9-23); CALCIUM LEVEL 7.8 MG/DL (8.3-10.6); CARBON DIOXIDE LEVEL 27 MMOL/L (20-31); CHLORIDE LEVEL 98 MMOL/L (98-107); CREATININE FOR GFR 0.37 MG/DL (0.55-1.30); GLOMERULAR FILTRATION RATE > 60.0 (>45); GLUCOSE, FASTING 91 MG/DL (74-106); POTASSIUM SERUM 3.7 MMOL/L (3.5-5.1); SODIUM LEVEL 134 MMOL/L (136-145)
[2024-06-26 07:17] VITALS: BP 113/56; TEMP 98.3; O2SAT 96
[2024-06-26 11:53] VITALS: BP 145/74; TEMP 97.9; O2SAT 95
[2024-06-26 17:22] VITALS: BP 145/74; TEMP 98.1; O2SAT 96
[2024-06-26 20:36] VITALS: BP 125/71; TEMP 97.8; O2SAT 95
[2024-06-26 23:51] VITALS: BP 126/69; TEMP 98.3; O2SAT 97
[2024-06-27 04:22] VITALS: BP 122/59; TEMP 97.3; O2SAT 94
[2024-06-27 05:14] LABS: HEMATOCRIT 29.1 % (36.0-47.0); HEMOGLOBIN 9.7 g/dl (12.0-15.5); MEAN CORPUSCULAR HEMOGLOBIN 35.1 pg (27.0-33.0); MEAN CORPUSCULAR HGB CONC 33.3 g/dl (32.0-36.5); MEAN CORPUSCULAR VOLUME 105.4 fl (80.0-96.0); RED BLOOD COUNT 2.76 10^6/uL (4.00-5.40); WHITE BLOOD COUNT 3.2 10^3/uL (4.0-10.0)
[2024-06-27 05:21] LABS: PLATELET COUNT, AUTOMATED 97 10^3/uL (150-450)
[2024-06-27 05:40] LABS: BLOOD UREA NITROGEN < 5 MG/DL (9-23); CALCIUM LEVEL 8.1 MG/DL (8.3-10.6); CARBON DIOXIDE LEVEL 27 MMOL/L (20-31); CHLORIDE LEVEL 98 MMOL/L (98-107); CREATININE FOR GFR 0.37 MG/DL (0.55-1.30); GLOMERULAR FILTRATION RATE > 60.0 (>45); GLUCOSE, FASTING 97 MG/DL (74-106); POTASSIUM SERUM 3.5 MMOL/L (3.5-5.1); SODIUM LEVEL 133 MMOL/L (136-145)
[2024-06-27 07:44] VITALS: BP 133/67; TEMP 98.4; O2SAT 96
[2024-06-27 12:03] VITALS: BP 122/64; TEMP 98.4; O2SAT 98
[2024-06-27] MEDS: medroxyPROGESTERone 5MG TABLET PO SCH (12:14)
[2024-06-27 16:21] VITALS: BP 126/58; TEMP 98.3; O2SAT 96
[2024-06-27] MEDS: LOPERAMIDE 2 MG CAPLET PO PRN (17:27)
[2024-06-27 19:36] VITALS: BP 130/62; TEMP 98; O2SAT 94
[2024-06-27 23:41] VITALS: BP 116/57; TEMP 97.7; O2SAT 95
[2024-06-28 04:11] VITALS: BP 117/57; TEMP 98.3; O2SAT 94
[2024-06-28 04:53] LABS: HEMATOCRIT 28.2 % (36.0-47.0); HEMOGLOBIN 9.5 g/dl (12.0-15.5); MEAN CORPUSCULAR HEMOGLOBIN 35.3 pg (27.0-33.0); MEAN CORPUSCULAR HGB CONC 33.7 g/dl (32.0-36.5); MEAN CORPUSCULAR VOLUME 104.8 fl (80.0-96.0); PLATELET COUNT, AUTOMATED 101 10^3/uL (150-450); RED BLOOD COUNT 2.69 10^6/uL (4.00-5.40); WHITE BLOOD COUNT 3.6 10^3/uL (4.0-10.0)
[2024-06-28 05:25] LABS: BLOOD UREA NITROGEN < 5 MG/DL (9-23); CALCIUM LEVEL 7.9 MG/DL (8.3-10.6); CARBON DIOXIDE LEVEL 30 MMOL/L (20-31); CHLORIDE LEVEL 98 MMOL/L (98-107); CREATININE FOR GFR 0.38 MG/DL (0.55-1.30); GLOMERULAR FILTRATION RATE > 60.0 (>45); GLUCOSE, FASTING 101 MG/DL (74-106); POTASSIUM SERUM 3.6 MMOL/L (3.5-5.1); SODIUM LEVEL 134 MMOL/L (136-145)
[2024-06-28 07:39] VITALS: BP 125/63; TEMP 98.4; O2SAT 93
[2024-06-28 18:30] VITALS: BP 121/59; TEMP 98.8; O2SAT 93
[2024-06-29 05:29] VITALS: BP 120/61; TEMP 97.9; O2SAT 97
[2024-06-29 06:00] LABS: HEMATOCRIT 28.4 % (36.0-47.0); HEMOGLOBIN 9.4 g/dl (12.0-15.5); MEAN CORPUSCULAR HEMOGLOBIN 34.8 pg (27.0-33.0); MEAN CORPUSCULAR HGB CONC 33.1 g/dl (32.0-36.5); MEAN CORPUSCULAR VOLUME 105.2 fl (80.0-96.0); PLATELET COUNT, AUTOMATED 112 10^3/uL (150-450); WHITE BLOOD COUNT 3.2 10^3/uL (4.0-10.0)
[2024-06-29 06:32] LABS: BLOOD UREA NITROGEN < 5 MG/DL (9-23); CARBON DIOXIDE LEVEL 29 MMOL/L (20-31); CHLORIDE LEVEL 100 MMOL/L (98-107); CREATININE FOR GFR 0.37 MG/DL (0.55-1.30); GLOMERULAR FILTRATION RATE > 60.0 (>45); GLUCOSE, FASTING 106 MG/DL (74-106); POTASSIUM SERUM 3.6 MMOL/L (3.5-5.1); SODIUM LEVEL 134 MMOL/L (136-145)
[2024-06-29 12:00] VITALS: BP 126/64; TEMP 98.8; O2SAT 99
[2024-06-29 20:40] VITALS: BP 115/66; TEMP 97.3; O2SAT 96
[2024-06-30 04:00] VITALS: BP 121/66; TEMP 97; O2SAT 95
[2024-06-30 10:02] VITALS: BP 124/72; TEMP 97.9; O2SAT 100
[2024-06-30] MEDS: NYSTATIN 100,000 UNITS/GM TOPICAL PWD 15GM TOP PRN (11:08)
[2024-07-01 04:07] VITALS: BP 107/61; TEMP 98.8; O2SAT 95
[2024-07-01 10:45] VITALS: BP 133/73; TEMP 98.1; O2SAT 100
[2024-07-02 04:00] VITALS: BP 110/67; TEMP 99; O2SAT 96
[2024-07-03 04:00] VITALS: BP 112/68; TEMP 97.5; O2SAT 92
[2024-07-04 04:00] VITALS: BP 117/69; TEMP 97.9; O2SAT 96
[2024-07-04 09:12] VITALS: BP 119/69; TEMP 98.1; O2SAT 97
[2024-07-05 04:00] VITALS: BP 116/65; TEMP 97.7; O2SAT 96
[2024-07-06 04:12] VITALS: BP 126/76; TEMP 97.5; O2SAT 98
[2024-07-06] MEDS: VANICREAM MOISTURIZING SKIN CREAM 113GM TUBE TOP SCH (21:51)
[2024-07-07 04:35] VITALS: BP 121/72; TEMP 97.9; O2SAT 95
[2024-07-08 04:05] VITALS: BP 137/83; TEMP 98.4; O2SAT 95
[2024-07-09 04:12] VITALS: BP 134/78; TEMP 97.9; O2SAT 95
[2024-07-10 05:08] VITALS: BP 134/75; TEMP 97.9; O2SAT 95
[2024-07-11 04:00] VITALS: BP 131/76; TEMP 98.1; O2SAT 98
[2024-07-12 04:44] VITALS: BP 131/75; TEMP 97.7; O2SAT 98
[2024-07-12] MEDS: SODIUM CHLORIDE NASAL 0.65% SPRAY BTL (OCEAN) PRN (11:25)
[2024-07-13 04:34] VITALS: BP 130/78; TEMP 97.9; O2SAT 97
[2024-07-13 18:36] VITALS: TEMP 99.3
[2024-07-13 18:40] VITALS: BP 153/89; TEMP 98.9; O2SAT 91
[2024-07-13] MEDS: ALBUTEROL SULFATE 2.5MG/0.5ML INH CONCENTRATE NEB SOLN NEB ONE (19:32)
[2024-07-13] MEDS: BUDESONIDE 0.5 MG/2 ML INHALATION SUSPENSION NEB SCH (20:00)
[2024-07-13] MEDS: ALBUTEROL SULFATE 2.5MG/0.5ML INH CONCENTRATE NEB SOLN NEB SCH (20:00)
[2024-07-13] MEDS: TORSEMIDE 20 MG TAB PO ONE (20:15)
[2024-07-13] MEDS: predniSONE 20 MG TAB PO ONE (20:15)
[2024-07-13 20:30] VITALS: BP 129/71
[2024-07-14 01:13] VITALS: BP 128/71
[2024-07-14 05:11] VITALS: BP 125/70; TEMP 98.3; O2SAT 95
[2024-07-14 06:29] LABS: BASO % 1.3 % (0.0-1.0); EOS # 0.1 10^3/uL (0.0-0.5); EOS % 3.1 % (0.0-3.0); HEMATOCRIT 33.7 % (36.0-47.0); HEMOGLOBIN 11.1 g/dl (12.0-15.5); LYMPH # 0.3 10^3/uL (1.5-5.0); LYMPH % 11.4 % (24.0-44.0); MEAN CORPUSCULAR HEMOGLOBIN 33.5 pg (27.0-33.0); MEAN CORPUSCULAR HGB CONC 32.9 g/dl (32.0-36.5); MEAN CORPUSCULAR VOLUME 101.8 fl (80.0-96.0); MONO # 0.1 10^3/uL (0.0-0.8); MONO % 2.6 % (2.0-8.0); NEUTROPHILS # 1.9 10^3/uL (1.5-8.5); NEUTROPHILS % 81.2 % (36.0-66.0); PLATELET COUNT, AUTOMATED 208 10^3/uL (150-450); RED BLOOD COUNT 3.31 10^6/uL (4.00-5.40); WHITE BLOOD COUNT 2.3 10^3/uL (4.0-10.0)
[2024-07-14 06:47] LABS: ALBUMIN 1.8 G/DL (3.2-5.2); ALKALINE PHOSPHATASE 74 U/L (35-104); ALT/SGPT 32 U/L (7.0-40); AST/SGOT 104 U/L (<34); BILIRUBIN,TOTAL 0.9 MG/DL (0.3-1.2); BLOOD UREA NITROGEN < 5 MG/DL (9-23); CALCIUM LEVEL 8.2 MG/DL (8.3-10.6); CARBON DIOXIDE LEVEL 30 MMOL/L (20-31); CHLORIDE LEVEL 93 MMOL/L (98-107); CREATININE FOR GFR 0.39 MG/DL (0.55-1.30); GLOMERULAR FILTRATION RATE > 60.0 (>45); GLUCOSE, FASTING 144 MG/DL (74-106); POTASSIUM SERUM 3.7 MMOL/L (3.5-5.1); SODIUM LEVEL 134 MMOL/L (136-145)
[2024-07-14] MEDS: LORATADINE 10 MG TAB PO SCH (08:54)
[2024-07-14] MEDS: TORSEMIDE 20 MG TAB PO SCH (08:54)
[2024-07-14] MEDS: ALBUTEROL 90 MCG/ACT 8GM HFA INHALER INH PRN (20:19)
[2024-07-15 04:19] VITALS: BP 112/66; TEMP 98.1; O2SAT 93
[2024-07-15] MEDS: ACETAMINOPHEN 325 MG TAB PO PRN (12:20)
[2024-07-16 04:00] VITALS: BP 113/59; TEMP 97.9; O2SAT 99
[2024-07-16 10:41] VITALS: BP 118/62; TEMP 97.2; O2SAT 94
[2024-07-16 10:45] VITALS: BP 118/62; TEMP 97.2; O2SAT 94
[2024-07-16] MEDS: BENZONATATE 100MG CAPSULE PO PRN (21:02)
[2024-07-17 04:00] VITALS: BP 139/75; TEMP 99.1; O2SAT 100
[2024-07-18 04:00] VITALS: BP 140/77; TEMP 98.1; O2SAT 80
[2024-07-18 10:34] VITALS: BP 140/78; TEMP 98.2; O2SAT 82
[2024-07-18 12:28] VITALS: BP 141/79; TEMP 97.6
[2024-07-18 13:43] VITALS: O2SAT 91
[2024-07-19] VITALS (9 sets, daily range): BP systolic 88–120; BP diastolic 50–67; TEMP 97.9–98.4; O2SAT 91–99
[2024-07-19] MEDS ORDERED: METOPROLOL SUCC *XL* 25MG TAB (TopROL *XL*) PO ONE (17:35)
[2024-07-19] MEDS: METOPROLOL TART 25 MG TABLET PO ONE (17:47)
[2024-07-19] MEDS ORDERED: ENOXAPARIN 30MG/0.3ML SYRINGE (J1650 PER 10MG) SC SCH (18:00)
[2024-07-19] MEDS ORDERED: ENOXAPARIN 150MG/ML SYRINGE SC SCH (18:00)
[2024-07-19 18:26] LABS: HEMATOCRIT 34.3 % (36.0-47.0); HEMOGLOBIN 11.2 g/dl (12.0-15.5); MEAN CORPUSCULAR HEMOGLOBIN 33.6 pg (27.0-33.0); MEAN CORPUSCULAR HGB CONC 32.7 g/dl (32.0-36.5); PLATELET COUNT, AUTOMATED 187 10^3/uL (150-450); RED BLOOD COUNT 3.33 10^6/uL (4.00-5.40); WHITE BLOOD COUNT 4.5 10^3/uL (4.0-10.0)
[2024-07-19] MEDS: AMIODARONE HCL 150 MG in IV 1 EA IV ONE (18:50)
[2024-07-19 18:55] LABS: CPK CREATINE PHOSPHOKINASE 17 U/L (34-145)
[2024-07-19 19:07] LABS: PROCALCITONIN 0.12 ng/ml
[2024-07-19 19:10] LABS: ALBUMIN 1.7 G/DL (3.2-5.2); ALKALINE PHOSPHATASE 69 U/L (35-104); ALT/SGPT 25 U/L (7.0-40); AST/SGOT 70 U/L (<34); BILIRUBIN,TOTAL 0.5 MG/DL (0.3-1.2); BLOOD UREA NITROGEN 7 MG/DL (9-23); CALCIUM LEVEL 7.5 MG/DL (8.3-10.6); CARBON DIOXIDE LEVEL > 40.0 MMOL/L (20-31); CHLORIDE LEVEL 88 MMOL/L (98-107); CK-MB VALUE MASS < 1.0 NG/ML (<3.6); CREATININE FOR GFR 0.38 MG/DL (0.55-1.30); GLOMERULAR FILTRATION RATE > 60.0 (>45); GLUCOSE, FASTING 139 MG/DL (74-106); MB/CK RELATIVE INDEX 5.88 (< OR =4); POTASSIUM SERUM 2.9 MMOL/L (3.5-5.1); SODIUM LEVEL 133 MMOL/L (136-145); TOTAL PROTEIN 5.7 G/DL (5.7-8.2)
[2024-07-19] MEDS: POTASSIUM CHLORIDE 10MEQ SR TABLET PO ONE (20:13)
[2024-07-19] MEDS: ENOXAPARIN 120MG/0.8ML SYRINGE SC SCH (20:54)
[2024-07-19] MEDS: METOPROLOL TART 25 MG TABLET PO SCH (22:00)
[2024-07-20] VITALS (8 sets, daily range): BP systolic 81–108; BP diastolic 50–58; TEMP 96.9–98; O2SAT 94–100
[2024-07-20 00:50] LABS: BLOOD UREA NITROGEN 7 MG/DL (9-23); CALCIUM LEVEL 7.4 MG/DL (8.3-10.6); CARBON DIOXIDE LEVEL 40 MMOL/L (20-31); CHLORIDE LEVEL 89 MMOL/L (98-107); GLOMERULAR FILTRATION RATE > 60.0 (>45); GLUCOSE, FASTING 109 MG/DL (74-106); SODIUM LEVEL 133 MMOL/L (136-145)
[2024-07-20] MEDS: POTASSIUM CHLORIDE 10MEQ SR TABLET PO ONE ×2 (01:10→15:01)
[2024-07-20 07:53] LABS: HEMOGLOBIN 11.5 g/dl (12.0-15.5); MEAN CORPUSCULAR HEMOGLOBIN 32.6 pg (27.0-33.0); MEAN CORPUSCULAR HGB CONC 31.9 g/dl (32.0-36.5); PLATELET COUNT, AUTOMATED 211 10^3/uL (150-450); RED BLOOD COUNT 3.53 10^6/uL (4.00-5.40); WHITE BLOOD COUNT 3.7 10^3/uL (4.0-10.0)
[2024-07-20] MEDS: DIGOXIN INJ 0.5 MG/2 ML AMP IV STA (08:06)
[2024-07-20 08:21] LABS: ALBUMIN 1.7 G/DL (3.2-5.2); ALKALINE PHOSPHATASE 64 U/L (35-104); ALT/SGPT 27 U/L (7.0-40); AST/SGOT 72 U/L (<34); BILIRUBIN,TOTAL 0.5 MG/DL (0.3-1.2); BLOOD UREA NITROGEN 7 MG/DL (9-23); CALCIUM LEVEL 7.6 MG/DL (8.3-10.6); CARBON DIOXIDE LEVEL > 40.0 MMOL/L (20-31); CHLORIDE LEVEL 88 MMOL/L (98-107); CREATININE FOR GFR 0.39 MG/DL (0.55-1.30); GLOMERULAR FILTRATION RATE > 60.0 (>45); GLUCOSE, FASTING 99 MG/DL (74-106); POTASSIUM SERUM 3.3 MMOL/L (3.5-5.1); SODIUM LEVEL 132 MMOL/L (136-145); TOTAL PROTEIN 5.7 G/DL (5.7-8.2)
[2024-07-20 12:02] LABS: KETONE, URINE AUTO RFX NEGATIVE (NEGATIVE); NITRITE, URINE AUTO RFX NEGATIVE (NEGATIVE); RBC, URINE AUTO RFX 8 /HPF (0-3); SQUAM EPITHELIAL CELL UR AURFX 0 /HPF (0-6); YEAST LIKE CELL URINE AUTO RFX SMALL
[2024-07-20 12:07] LABS: LEUKOCYTE ESTERASE UR AUTO RFX 3+ (NEGATIVE); WBC, URINE AUTO RFX 118 /HPF (0-3)
[2024-07-20 13:35] LABS: BLOOD UREA NITROGEN 7 MG/DL (9-23); CALCIUM LEVEL 7.8 MG/DL (8.3-10.6); CARBON DIOXIDE LEVEL > 40.0 MMOL/L (20-31); CHLORIDE LEVEL 87 MMOL/L (98-107); CREATININE FOR GFR 0.39 MG/DL (0.55-1.30); GLOMERULAR FILTRATION RATE > 60.0 (>45); GLUCOSE, FASTING 105 MG/DL (74-106); SODIUM LEVEL 133 MMOL/L (136-145)
[2024-07-20] MEDS: DIGOXIN 0.25 MG TAB PO SCH (14:05)
[2024-07-20] MEDS: cefTRIAXone SOD 1 GM in DEXTROSE 5% (D5W) ADV/MINI-BAG 50 ML IV SCH (15:01)
[2024-07-20] MEDS: KCL 40MEQ in NS 1000ML 1,000 ML IV SCH (15:01)
[2024-07-20] MEDS: LEVALBUTEROL 1.25 MG 0.5ML CONCENTRATE NEB NEB SCH (15:12)
[2024-07-20] MEDS: ENOXAPARIN 150MG/ML SYRINGE SC SCH (21:11)
[2024-07-21] VITALS (7 sets, daily range): BP systolic 89–107; BP diastolic 53–66; TEMP 97–98.3; O2SAT 92–99
[2024-07-21 07:55] LABS: HEMATOCRIT 32.2 % (36.0-47.0); MEAN CORPUSCULAR HEMOGLOBIN 34.8 pg (27.0-33.0); MEAN CORPUSCULAR HGB CONC 34.2 g/dl (32.0-36.5); MEAN CORPUSCULAR VOLUME 101.9 fl (80.0-96.0); PLATELET COUNT, AUTOMATED 223 10^3/uL (150-450); RED BLOOD COUNT 3.16 10^6/uL (4.00-5.40); WHITE BLOOD COUNT 3.6 10^3/uL (4.0-10.0)
[2024-07-21 08:25] LABS: ALBUMIN 1.7 G/DL (3.2-5.2); ALKALINE PHOSPHATASE 57 U/L (35-104); ALT/SGPT 24 U/L (7.0-40); AST/SGOT 67 U/L (<34); BILIRUBIN,TOTAL 0.5 MG/DL (0.3-1.2); BLOOD UREA NITROGEN 6 MG/DL (9-23); CALCIUM LEVEL 7.6 MG/DL (8.3-10.6); CARBON DIOXIDE LEVEL 35 MMOL/L (20-31); CHLORIDE LEVEL 93 MMOL/L (98-107); CREATININE FOR GFR 0.36 MG/DL (0.55-1.30); GLOMERULAR FILTRATION RATE > 60.0 (>45); GLUCOSE, FASTING 98 MG/DL (74-106); POTASSIUM SERUM 4.1 MMOL/L (3.5-5.1); SODIUM LEVEL 134 MMOL/L (136-145); TOTAL PROTEIN 5.5 G/DL (5.7-8.2)
[2024-07-21] MEDS: APIXABAN 5 MG TAB (ELIQUIS) PO SCH (09:24)
[2024-07-21] MEDS: POTASSIUM CHLORIDE 10MEQ SR TABLET PO SCH (09:27)
[2024-07-22 03:52] VITALS: BP 123/57; TEMP 97; O2SAT 98
[2024-07-22 07:21] LABS: HEMATOCRIT 31.8 % (36.0-47.0); HEMOGLOBIN 10.6 g/dl (12.0-15.5); MEAN CORPUSCULAR HEMOGLOBIN 33.2 pg (27.0-33.0); MEAN CORPUSCULAR HGB CONC 33.3 g/dl (32.0-36.5); MEAN CORPUSCULAR VOLUME 99.7 fl (80.0-96.0); PLATELET COUNT, AUTOMATED 208 10^3/uL (150-450); RED BLOOD COUNT 3.19 10^6/uL (4.00-5.40); WHITE BLOOD COUNT 3.7 10^3/uL (4.0-10.0)
[2024-07-22 07:48] VITALS: BP 131/55; TEMP 97.4; O2SAT 96
[2024-07-22 07:54] LABS: ALBUMIN 1.7 G/DL (3.2-5.2); ALKALINE PHOSPHATASE 56 U/L (35-104); ALT/SGPT 26 U/L (7.0-40); AST/SGOT 69 U/L (<34); BILIRUBIN,TOTAL 0.5 MG/DL (0.3-1.2); BLOOD UREA NITROGEN 6 MG/DL (9-23); CALCIUM LEVEL 7.7 MG/DL (8.3-10.6); CARBON DIOXIDE LEVEL 33 MMOL/L (20-31); CHLORIDE LEVEL 92 MMOL/L (98-107); CREATININE FOR GFR 0.32 MG/DL (0.55-1.30); GLOMERULAR FILTRATION RATE > 60.0 (>45); GLUCOSE, FASTING 105 MG/DL (74-106); POTASSIUM SERUM 3.7 MMOL/L (3.5-5.1); SODIUM LEVEL 132 MMOL/L (136-145); TOTAL PROTEIN 5.6 G/DL (5.7-8.2)
[2024-07-22] MEDS: DIGOXIN 0.125 MG TAB PO SCH (09:53)
[2024-07-22 11:39] VITALS: BP 93/55; TEMP 97.4; O2SAT 98
[2024-07-22 16:00] VITALS: BP 109/53; TEMP 97.6; O2SAT 96
[2024-07-22 20:00] VITALS: BP 113/55; PULSE 101; O2SAT 96
[2024-07-22 20:47] VITALS: BP 113/55; TEMP 97.4; O2SAT 96
[2024-07-23] VITALS (8 sets, daily range): BP systolic 101–128; BP diastolic 55–66; PULSE 101; TEMP 97.1–98.1; O2SAT 95–99
[2024-07-23] MEDS: LEVALBUTEROL 1.25 MG 0.5ML CONCENTRATE NEB NEB PRN (05:20)
[2024-07-23 08:14] LABS: BLOOD UREA NITROGEN < 5 MG/DL (9-23); CALCIUM LEVEL 8.1 MG/DL (8.3-10.6); CARBON DIOXIDE LEVEL 33 MMOL/L (20-31); CHLORIDE LEVEL 94 MMOL/L (98-107); CREATININE FOR GFR 0.35 MG/DL (0.55-1.30); GLOMERULAR FILTRATION RATE > 60.0 (>45); GLUCOSE, FASTING 110 MG/DL (74-106); MAGNESIUM LEVEL 1.4 MG/DL (1.8-2.4); POTASSIUM SERUM 3.6 MMOL/L (3.5-5.1); SODIUM LEVEL 134 MMOL/L (136-145)
[2024-07-23] MEDS: TORSEMIDE 10 MG TABLET PO SCH (08:57)
[2024-07-23] MEDS: oxyBUTYnin 5 MG TAB PO SCH (08:58)
[2024-07-23] MEDS: MAG SULF 1GM/100ML (MAG RUN) 1 GM in IV 1 EA IV SCH (08:59)
[2024-07-23] MEDS: DIGOXIN INJ 0.5 MG/2 ML AMP IV ONE (09:00)
[2024-07-23] MEDS: POTASSIUM CHLORIDE 10MEQ SR TABLET PO ONE (10:22)
[2024-07-23] MEDS: PHENAZOPYRIDINE 100 MG TAB PO SCH (10:22)
[2024-07-24 03:35] VITALS: BP 107/79; TEMP 97.5; O2SAT 96
[2024-07-24 06:59] LABS: BLOOD UREA NITROGEN 6 MG/DL (9-23); CALCIUM LEVEL 8.1 MG/DL (8.3-10.6); CARBON DIOXIDE LEVEL 33 MMOL/L (20-31); CHLORIDE LEVEL 93 MMOL/L (98-107); CREATININE FOR GFR 0.35 MG/DL (0.55-1.30); GLOMERULAR FILTRATION RATE > 60.0 (>45); GLUCOSE, FASTING 118 MG/DL (74-106); MAGNESIUM LEVEL 1.8 MG/DL (1.8-2.4); POTASSIUM SERUM 3.7 MMOL/L (3.5-5.1); SODIUM LEVEL 131 MMOL/L (136-145)
[2024-07-24 07:31] VITALS: BP 97/55; TEMP 98.5; O2SAT 95
[2024-07-24] MEDS ORDERED: BISACODYL 10MG SUPP PR PRN (10:50)
[2024-07-24] MEDS: SENOKOT S TAB PO SCH (10:50)
[2024-07-24 12:05] VITALS: BP 103/57; TEMP 97.1; O2SAT 97
[2024-07-24 12:49] LABS: BLOOD UREA NITROGEN 5 MG/DL (9-23); CALCIUM LEVEL 8.2 MG/DL (8.3-10.6); CARBON DIOXIDE LEVEL 30 MMOL/L (20-31); CHLORIDE LEVEL 91 MMOL/L (98-107); CREATININE FOR GFR 0.32 MG/DL (0.55-1.30); GLOMERULAR FILTRATION RATE > 60.0 (>45); GLUCOSE, FASTING 103 MG/DL (74-106); POTASSIUM SERUM 3.8 MMOL/L (3.5-5.1); SODIUM LEVEL 129 MMOL/L (136-145)
[2024-07-24 15:34] VITALS: BP 100/59; TEMP 98.8; O2SAT 97
[2024-07-24 19:55] VITALS: BP 100/57; TEMP 98.7; O2SAT 96
[2024-07-24] MEDS ORDERED: SYMBICORT 160/4.5MCG INHALER 6GM INH SCH (20:00)
[2024-07-24 23:43] VITALS: BP 108/58; TEMP 97.6; O2SAT 98
[2024-07-25 04:40] VITALS: BP 103/57; TEMP 97; O2SAT 94
[2024-07-25 06:36] LABS: BLOOD UREA NITROGEN < 5 MG/DL (9-23); CALCIUM LEVEL 8.3 MG/DL (8.3-10.6); CARBON DIOXIDE LEVEL 32 MMOL/L (20-31); CHLORIDE LEVEL 95 MMOL/L (98-107); CREATININE FOR GFR 0.34 MG/DL (0.55-1.30); GLOMERULAR FILTRATION RATE > 60.0 (>45); GLUCOSE, FASTING 114 MG/DL (74-106); MAGNESIUM LEVEL 1.7 MG/DL (1.8-2.4); POTASSIUM SERUM 3.8 MMOL/L (3.5-5.1); SODIUM LEVEL 132 MMOL/L (136-145)
[2024-07-25 07:37] VITALS: BP 110/56; TEMP 97.3; O2SAT 99
[2024-07-25] MEDS: BISACODYL 10MG SUPP PR SCH (08:11)
[2024-07-25] MEDS: MAGNESIUM OXIDE 400MG TAB (MAG-OX) PO SCH (08:11)
[2024-07-25 11:53] VITALS: BP 114/59; TEMP 97; O2SAT 99
[2024-07-25 16:05] VITALS: BP 130/58; TEMP 97.1; O2SAT 96
[2024-07-25 20:01] VITALS: BP 113/69; TEMP 98.1; O2SAT 95
[2024-07-25 23:29] VITALS: BP 114/60; TEMP 97.9; O2SAT 97
[2024-07-26] MEDS: RAMELTEON 8 MG TAB (ROZEREM) PO ONE (01:10)
[2024-07-26 03:28] VITALS: BP 105/64; TEMP 97.8; O2SAT 94
[2024-07-26 08:05] VITALS: BP 107/61; TEMP 98; O2SAT 92
[2024-07-26 08:07] LABS: BLOOD UREA NITROGEN < 5 MG/DL (9-23); CARBON DIOXIDE LEVEL 29 MMOL/L (20-31); CHLORIDE LEVEL 96 MMOL/L (98-107); CREATININE FOR GFR 0.28 MG/DL (0.55-1.30); GLOMERULAR FILTRATION RATE > 60.0 (>45); GLUCOSE, FASTING 108 MG/DL (74-106); MAGNESIUM LEVEL 1.7 MG/DL (1.8-2.4); POTASSIUM SERUM 3.6 MMOL/L (3.5-5.1); SODIUM LEVEL 132 MMOL/L (136-145)
[2024-07-26 12:00] VITALS: BP 116/62; TEMP 97.9; O2SAT 92
[2024-07-26 19:43] VITALS: BP 103/60; TEMP 98; O2SAT 94
[2024-07-26 21:25] VITALS: BP 99/52; TEMP 98.2; O2SAT 97
[2024-07-26 23:37] VITALS: BP 110/53; TEMP 98; O2SAT 95
[2024-07-27 03:49] VITALS: BP 107/67; TEMP 98.4; O2SAT 95
[2024-07-27 08:01] LABS: BLOOD UREA NITROGEN < 5 MG/DL (9-23); CALCIUM LEVEL 8.2 MG/DL (8.3-10.6); CARBON DIOXIDE LEVEL 29 MMOL/L (20-31); CHLORIDE LEVEL 97 MMOL/L (98-107); CREATININE FOR GFR 0.34 MG/DL (0.55-1.30); GLOMERULAR FILTRATION RATE > 60.0 (>45); GLUCOSE, FASTING 114 MG/DL (74-106); MAGNESIUM LEVEL 1.7 MG/DL (1.8-2.4); POTASSIUM SERUM 3.8 MMOL/L (3.5-5.1); SODIUM LEVEL 133 MMOL/L (136-145)
[2024-07-27 08:03] VITALS: BP 110/64; TEMP 97.2; O2SAT 95
[2024-07-27 12:00] VITALS: BP 104/53; TEMP 97.9; O2SAT 93
[2024-07-27 19:40] VITALS: BP 108/55; TEMP 97.7; O2SAT 98
[2024-07-27] MEDS: PROPRANOLOL 10 MG TAB PO SCH (20:18)
[2024-07-27 23:08] VITALS: BP 104/51; TEMP 97.9; O2SAT 97
[2024-07-28] VITALS (7 sets, daily range): BP systolic 90–111; BP diastolic 54–68; TEMP 97–98.2; O2SAT 94–98
[2024-07-28 07:14] LABS: BLOOD UREA NITROGEN < 5 MG/DL (9-23); CARBON DIOXIDE LEVEL 30 MMOL/L (20-31); CHLORIDE LEVEL 98 MMOL/L (98-107); CREATININE FOR GFR 0.34 MG/DL (0.55-1.30); GLOMERULAR FILTRATION RATE > 60.0 (>45); GLUCOSE, FASTING 108 MG/DL (74-106); MAGNESIUM LEVEL 1.8 MG/DL (1.8-2.4); POTASSIUM SERUM 3.9 MMOL/L (3.5-5.1); SODIUM LEVEL 132 MMOL/L (136-145)
[2024-07-29] VITALS (7 sets, daily range): BP systolic 97–120; BP diastolic 50–63; TEMP 96.9–98.2; O2SAT 93–99
[2024-07-29 06:20] LABS: BLOOD UREA NITROGEN < 5 MG/DL (9-23); CALCIUM LEVEL 8.3 MG/DL (8.3-10.6); CARBON DIOXIDE LEVEL 31 MMOL/L (20-31); CHLORIDE LEVEL 96 MMOL/L (98-107); CREATININE FOR GFR 0.39 MG/DL (0.55-1.30); GLOMERULAR FILTRATION RATE > 60.0 (>45); GLUCOSE, FASTING 118 MG/DL (74-106); MAGNESIUM LEVEL 1.9 MG/DL (1.8-2.4); SODIUM LEVEL 132 MMOL/L (136-145)
[2024-07-29 07:49] LABS: THYROID STIMULATING HORMONE 2.846 uIU/ML (0.55-4.78); THYROXINE (T4) 12.1 UG/DL (4.5-10.9)
[2024-07-29] MEDS: MIDODRINE 5 MG TAB PO ONE (08:09)
[2024-07-29 08:11] LABS: OSMOLALITY SERUM 272 MOSM/KG (280-301)
[2024-07-29 08:49] LABS: FREE THYROXINE INDEX 5.3 % (1.3-4.8); T UPTAKE 43.6 % (22.5-37.0)
[2024-07-30 03:41] VITALS: BP 101/61; TEMP 97.8; O2SAT 97
[2024-07-30 06:57] LABS: BLOOD UREA NITROGEN < 5 MG/DL (9-23); CALCIUM LEVEL 8.4 MG/DL (8.3-10.6); CARBON DIOXIDE LEVEL 29 MMOL/L (20-31); CHLORIDE LEVEL 98 MMOL/L (98-107); CREATININE FOR GFR 0.37 MG/DL (0.55-1.30); GLOMERULAR FILTRATION RATE > 60.0 (>45); GLUCOSE, FASTING 107 MG/DL (74-106); MAGNESIUM LEVEL 1.9 MG/DL (1.8-2.4); POTASSIUM SERUM 3.9 MMOL/L (3.5-5.1); SODIUM LEVEL 133 MMOL/L (136-145)
[2024-07-30 08:34] VITALS: BP 112/57; TEMP 97.7; O2SAT 98
[2024-07-30 12:30] VITALS: BP 98/54; TEMP 97.5; O2SAT 99
[2024-07-30] MEDS: NS 500 ML IV ONE (19:23)
[2024-07-30 19:45] VITALS: BP 102/59; TEMP 97.5; O2SAT 95
[2024-07-30 23:55] VITALS: BP 106/52; TEMP 98.5; O2SAT 94
[2024-07-31] VITALS: BP 106/52; PULSE 81; O2SAT 94
[2024-07-31 03:47] VITALS: BP 92/53; TEMP 97.9; O2SAT 94
[2024-07-31 05:38] LABS: ABG BASE EXCESS 2.4 (-2.0-2.0); ABG O2 SATURATION 98.5 % (95.0-99.0); ABG PARTIAL PRESSURE CO2 36.7 mmHg (35.0-45.0); ABG PARTIAL PRESSURE O2 141.9 mmHg (75.0-100.0); ABG STANDARD HCO3 26.6 MMOL/L. (22.0-26.0); ABG TOTAL CO2 27.2 MMOL/L (23.0-31.0); ABG pH (ARTERIAL) 7.469 UNITS (7.350-7.450)
[2024-07-31 06:06] LABS: BASO % 0.6 % (0.0-1.0); EOS # 0.1 10^3/uL (0.0-0.5); HEMATOCRIT 29.2 % (36.0-47.0); HEMOGLOBIN 9.7 g/dl (12.0-15.5); LYMPH # 1.3 10^3/uL (1.5-5.0); MEAN CORPUSCULAR HEMOGLOBIN 32.4 pg (27.0-33.0); MEAN CORPUSCULAR HGB CONC 33.2 g/dl (32.0-36.5); MEAN CORPUSCULAR VOLUME 97.7 fl (80.0-96.0); MONO # 0.3 10^3/uL (0.0-0.8); NEUTROPHILS # 1.9 10^3/uL (1.5-8.5); NEUTROPHILS % 53.1 % (36.0-66.0); PLATELET COUNT, AUTOMATED 227 10^3/uL (150-450); RED BLOOD COUNT 2.99 10^6/uL (4.00-5.40); WHITE BLOOD COUNT 3.6 10^3/uL (4.0-10.0)
[2024-07-31 06:49] LABS: BLOOD UREA NITROGEN < 5 MG/DL (9-23); CALCIUM LEVEL 8.5 MG/DL (8.3-10.6); CARBON DIOXIDE LEVEL 28 MMOL/L (20-31); CHLORIDE LEVEL 100 MMOL/L (98-107); CREATININE FOR GFR 0.34 MG/DL (0.55-1.30); GLOMERULAR FILTRATION RATE > 60.0 (>45); GLUCOSE, FASTING 100 MG/DL (74-106); POTASSIUM SERUM 4.1 MMOL/L (3.5-5.1); SODIUM LEVEL 132 MMOL/L (136-145)
[2024-07-31 08:00] VITALS: BP 110/52; TEMP 97.6; O2SAT 94
[2024-07-31] MEDS: MIDODRINE 5 MG TAB PO SCH (08:00)
[2024-07-31] MEDS: METOPROLOL TART 12.5 MG PER 1/2 TAB PO SCH (09:00)
[2024-07-31 11:43] VITALS: BP 112/54; TEMP 97.6; O2SAT 94
[2024-07-31 16:00] VITALS: BP 122/64; TEMP 98; O2SAT 96
[2024-07-31 20:35] VITALS: BP 129/60; TEMP 97.1; O2SAT 94
[2024-08-01] VITALS (7 sets, daily range): BP systolic 100–119; BP diastolic 53–84; TEMP 96.9–98.4; O2SAT 94–99
[2024-08-01 06:21] LABS: BASO % 0.8 % (0.0-1.0); EOS # 0.1 10^3/uL (0.0-0.5); EOS % 3.3 % (0.0-3.0); HEMATOCRIT 29.6 % (36.0-47.0); HEMOGLOBIN 9.8 g/dl (12.0-15.5); LYMPH # 1.2 10^3/uL (1.5-5.0); LYMPH % 32.8 % (24.0-44.0); MEAN CORPUSCULAR HGB CONC 33.1 g/dl (32.0-36.5); MEAN CORPUSCULAR VOLUME 96.7 fl (80.0-96.0); MONO # 0.3 10^3/uL (0.0-0.8); MONO % 7.1 % (2.0-8.0); NEUTROPHILS % 55.7 % (36.0-66.0); PLATELET COUNT, AUTOMATED 239 10^3/uL (150-450); RED BLOOD COUNT 3.06 10^6/uL (4.00-5.40); WHITE BLOOD COUNT 3.7 10^3/uL (4.0-10.0)
[2024-08-01 06:41] LABS: BLOOD UREA NITROGEN < 5 MG/DL (9-23); CALCIUM LEVEL 8.3 MG/DL (8.3-10.6); CARBON DIOXIDE LEVEL 25 MMOL/L (20-31); CHLORIDE LEVEL 98 MMOL/L (98-107); CREATININE FOR GFR 0.32 MG/DL (0.55-1.30); GLOMERULAR FILTRATION RATE > 60.0 (>45); GLUCOSE, FASTING 102 MG/DL (74-106); SODIUM LEVEL 134 MMOL/L (136-145)
[2024-08-01] MEDS: METOPROLOL TART 25 MG TABLET PO ONE (08:30)
[2024-08-01] MEDS: MIDODRINE 5 MG TAB PO ONE (09:55)
[2024-08-01] MEDS: LR 1,000 ML IV ONE (09:56)
[2024-08-01] MEDS: RAMELTEON 8 MG TAB (ROZEREM) PO PRN (23:42)
[2024-08-02] VITALS (7 sets, daily range): BP systolic 98–118; BP diastolic 57–63; TEMP 97.2–98.2; O2SAT 95–98
[2024-08-02 05:32] LABS: BASO % 1.1 % (0.0-1.0); EOS # 0.1 10^3/uL (0.0-0.5); EOS % 3.3 % (0.0-3.0); HEMATOCRIT 29.4 % (36.0-47.0); HEMOGLOBIN 9.5 g/dl (12.0-15.5); LYMPH # 1.2 10^3/uL (1.5-5.0); LYMPH % 34.3 % (24.0-44.0); MEAN CORPUSCULAR HEMOGLOBIN 31.1 pg (27.0-33.0); MEAN CORPUSCULAR HGB CONC 32.3 g/dl (32.0-36.5); MEAN CORPUSCULAR VOLUME 96.4 fl (80.0-96.0); MONO # 0.3 10^3/uL (0.0-0.8); MONO % 7.5 % (2.0-8.0); NEUTROPHILS # 1.9 10^3/uL (1.5-8.5); NEUTROPHILS % 53.5 % (36.0-66.0); PLATELET COUNT, AUTOMATED 230 10^3/uL (150-450); RED BLOOD COUNT 3.05 10^6/uL (4.00-5.40); WHITE BLOOD COUNT 3.6 10^3/uL (4.0-10.0)
[2024-08-02 05:56] LABS: BLOOD UREA NITROGEN < 5 MG/DL (9-23); CALCIUM LEVEL 8.3 MG/DL (8.3-10.6); CARBON DIOXIDE LEVEL 26 MMOL/L (20-31); CHLORIDE LEVEL 101 MMOL/L (98-107); CREATININE FOR GFR 0.35 MG/DL (0.55-1.30); GLOMERULAR FILTRATION RATE > 60.0 (>45); GLUCOSE, FASTING 100 MG/DL (74-106); POTASSIUM SERUM 4.3 MMOL/L (3.5-5.1); SODIUM LEVEL 133 MMOL/L (136-145)
[2024-08-02] MEDS ORDERED: METOPROLOL TART 25 MG TABLET PO SCH (09:00)
[2024-08-02] MEDS: LR 1,000 ML IV ONE (09:50)
[2024-08-02] MEDS: METOPROLOL TART 12.5 MG PER 1/2 TAB PO SCH (11:03)
[2024-08-03] VITALS (7 sets, daily range): BP systolic 98–117; BP diastolic 55–71; PULSE 92; TEMP 97.4–98; O2SAT 93–97
[2024-08-03 05:38] LABS: BASO % 0.8 % (0.0-1.0); EOS # 0.2 10^3/uL (0.0-0.5); EOS % 4.1 % (0.0-3.0); HEMATOCRIT 29.5 % (36.0-47.0); HEMOGLOBIN 9.6 g/dl (12.0-15.5); LYMPH # 1.3 10^3/uL (1.5-5.0); LYMPH % 33.3 % (24.0-44.0); MEAN CORPUSCULAR HEMOGLOBIN 31.7 pg (27.0-33.0); MEAN CORPUSCULAR HGB CONC 32.5 g/dl (32.0-36.5); MEAN CORPUSCULAR VOLUME 97.4 fl (80.0-96.0); MONO # 0.3 10^3/uL (0.0-0.8); MONO % 7.2 % (2.0-8.0); NEUTROPHILS # 2.1 10^3/uL (1.5-8.5); NEUTROPHILS % 54.6 % (36.0-66.0); PLATELET COUNT, AUTOMATED 211 10^3/uL (150-450); RED BLOOD COUNT 3.03 10^6/uL (4.00-5.40); WHITE BLOOD COUNT 3.9 10^3/uL (4.0-10.0)
[2024-08-03 06:13] LABS: BLOOD UREA NITROGEN < 5 MG/DL (9-23); CALCIUM LEVEL 8.4 MG/DL (8.3-10.6); CARBON DIOXIDE LEVEL 25 MMOL/L (20-31); CHLORIDE LEVEL 103 MMOL/L (98-107); CREATININE FOR GFR 0.43 MG/DL (0.55-1.30); GLOMERULAR FILTRATION RATE > 60.0 (>45); GLUCOSE, FASTING 103 MG/DL (74-106); POTASSIUM SERUM 4.4 MMOL/L (3.5-5.1); SODIUM LEVEL 135 MMOL/L (136-145)
[2024-08-04 03:57] VITALS: BP 96/54; TEMP 97.7; O2SAT 95
[2024-08-04 06:57] LABS: BASO % 0.8 % (0.0-1.0); EOS # 0.1 10^3/uL (0.0-0.5); EOS % 3.2 % (0.0-3.0); HEMATOCRIT 29.9 % (36.0-47.0); HEMOGLOBIN 9.8 g/dl (12.0-15.5); LYMPH # 1.2 10^3/uL (1.5-5.0); LYMPH % 31.6 % (24.0-44.0); MEAN CORPUSCULAR HEMOGLOBIN 31.4 pg (27.0-33.0); MEAN CORPUSCULAR HGB CONC 32.8 g/dl (32.0-36.5); MEAN CORPUSCULAR VOLUME 95.8 fl (80.0-96.0); MONO # 0.2 10^3/uL (0.0-0.8); MONO % 6.4 % (2.0-8.0); NEUTROPHILS # 2.2 10^3/uL (1.5-8.5); NEUTROPHILS % 57.7 % (36.0-66.0); PLATELET COUNT, AUTOMATED 227 10^3/uL (150-450); RED BLOOD COUNT 3.12 10^6/uL (4.00-5.40); WHITE BLOOD COUNT 3.8 10^3/uL (4.0-10.0)
[2024-08-04 07:42] LABS: BLOOD UREA NITROGEN < 5 MG/DL (9-23); CALCIUM LEVEL 8.2 MG/DL (8.3-10.6); CARBON DIOXIDE LEVEL 23 MMOL/L (20-31); CHLORIDE LEVEL 104 MMOL/L (98-107); CREATININE FOR GFR 0.34 MG/DL (0.55-1.30); GLOMERULAR FILTRATION RATE > 60.0 (>45); GLUCOSE, FASTING 101 MG/DL (74-106); POTASSIUM SERUM 4.2 MMOL/L (3.5-5.1); SODIUM LEVEL 136 MMOL/L (136-145)
[2024-08-04 08:35] VITALS: BP 96/54; TEMP 97.7; O2SAT 98
[2024-08-04 11:30] LABS: HEMOGLOBIN 10.1 g/dl (12.0-15.5); MEAN CORPUSCULAR HEMOGLOBIN 31.2 pg (27.0-33.0); MEAN CORPUSCULAR HGB CONC 32.6 g/dl (32.0-36.5); MEAN CORPUSCULAR VOLUME 95.7 fl (80.0-96.0); PLATELET COUNT, AUTOMATED 233 10^3/uL (150-450); RED BLOOD COUNT 3.24 10^6/uL (4.00-5.40); WHITE BLOOD COUNT 4.2 10^3/uL (4.0-10.0)
[2024-08-04 12:02] LABS: BLOOD UREA NITROGEN < 5 MG/DL (9-23); CALCIUM LEVEL 8.5 MG/DL (8.3-10.6); CARBON DIOXIDE LEVEL 22 MMOL/L (20-31); CHLORIDE LEVEL 106 MMOL/L (98-107); CREATININE FOR GFR 0.34 MG/DL (0.55-1.30); GLOMERULAR FILTRATION RATE > 60.0 (>45); GLUCOSE, FASTING 101 MG/DL (74-106); POTASSIUM SERUM 4.5 MMOL/L (3.5-5.1); SODIUM LEVEL 136 MMOL/L (136-145)
[2024-08-04 12:11] VITALS: BP 111/69
[2024-08-05 04:25] VITALS: BP 115/66; TEMP 97.7; O2SAT 99
[2024-08-05 06:41] LABS: BASO % 0.7 % (0.0-1.0); EOS # 0.1 10^3/uL (0.0-0.5); EOS % 3.1 % (0.0-3.0); HEMATOCRIT 32.4 % (36.0-47.0); HEMOGLOBIN 10.5 g/dl (12.0-15.5); LYMPH # 1.5 10^3/uL (1.5-5.0); LYMPH % 34.9 % (24.0-44.0); MEAN CORPUSCULAR HEMOGLOBIN 31.3 pg (27.0-33.0); MEAN CORPUSCULAR HGB CONC 32.4 g/dl (32.0-36.5); MEAN CORPUSCULAR VOLUME 96.4 fl (80.0-96.0); MONO # 0.3 10^3/uL (0.0-0.8); MONO % 6.5 % (2.0-8.0); NEUTROPHILS # 2.3 10^3/uL (1.5-8.5); NEUTROPHILS % 54.8 % (36.0-66.0); PLATELET COUNT, AUTOMATED 239 10^3/uL (150-450); RED BLOOD COUNT 3.36 10^6/uL (4.00-5.40); WHITE BLOOD COUNT 4.2 10^3/uL (4.0-10.0)
[2024-08-05 06:58] LABS: BLOOD UREA NITROGEN < 5 MG/DL (9-23); CALCIUM LEVEL 8.7 MG/DL (8.3-10.6); CARBON DIOXIDE LEVEL 24 MMOL/L (20-31); CHLORIDE LEVEL 102 MMOL/L (98-107); CREATININE FOR GFR 0.41 MG/DL (0.55-1.30); GLOMERULAR FILTRATION RATE > 60.0 (>45); GLUCOSE, FASTING 96 MG/DL (74-106); POTASSIUM SERUM 4.4 MMOL/L (3.5-5.1); SODIUM LEVEL 135 MMOL/L (136-145)
[2024-08-06 03:57] VITALS: BP 105/62; TEMP 97.5; O2SAT 96
[2024-08-06 06:24] LABS: BASO % 0.5 % (0.0-1.0); EOS # 0.1 10^3/uL (0.0-0.5); EOS % 3.2 % (0.0-3.0); HEMATOCRIT 29.2 % (36.0-47.0); HEMOGLOBIN 9.6 g/dl (12.0-15.5); LYMPH # 1.2 10^3/uL (1.5-5.0); LYMPH % 29.3 % (24.0-44.0); MEAN CORPUSCULAR HEMOGLOBIN 31.4 pg (27.0-33.0); MEAN CORPUSCULAR HGB CONC 32.9 g/dl (32.0-36.5); MEAN CORPUSCULAR VOLUME 95.4 fl (80.0-96.0); MONO # 0.3 10^3/uL (0.0-0.8); MONO % 7.1 % (2.0-8.0); NEUTROPHILS # 2.4 10^3/uL (1.5-8.5); NEUTROPHILS % 59.7 % (36.0-66.0); PLATELET COUNT, AUTOMATED 221 10^3/uL (150-450); RED BLOOD COUNT 3.06 10^6/uL (4.00-5.40); WHITE BLOOD COUNT 4.1 10^3/uL (4.0-10.0)
[2024-08-06 06:50] LABS: BLOOD UREA NITROGEN 6 MG/DL (9-23); CALCIUM LEVEL 8.4 MG/DL (8.3-10.6); CARBON DIOXIDE LEVEL 22 MMOL/L (20-31); CHLORIDE LEVEL 103 MMOL/L (98-107); CREATININE FOR GFR 0.43 MG/DL (0.55-1.30); GLOMERULAR FILTRATION RATE > 60.0 (>45); GLUCOSE, FASTING 100 MG/DL (74-106); POTASSIUM SERUM 4.6 MMOL/L (3.5-5.1); SODIUM LEVEL 133 MMOL/L (136-145)
[2024-08-07 04:00] VITALS: BP 128/72; TEMP 97.3; O2SAT 92
[2024-08-07 11:00] LABS: HEMATOCRIT 31.2 % (36.0-47.0); HEMOGLOBIN 10.2 g/dl (12.0-15.5); MEAN CORPUSCULAR HEMOGLOBIN 31.4 pg (27.0-33.0); MEAN CORPUSCULAR HGB CONC 32.7 g/dl (32.0-36.5); PLATELET COUNT, AUTOMATED 210 10^3/uL (150-450); RED BLOOD COUNT 3.25 10^6/uL (4.00-5.40); WHITE BLOOD COUNT 4.7 10^3/uL (4.0-10.0)
[2024-08-08 04:41] VITALS: BP 135/67; TEMP 97.5; O2SAT 95
[2024-08-08] MEDS: MIRALAX *UNIT DOSE* 17GM PACKET PO PRN (09:59)
[2024-08-08 13:08] VITALS: BP 138/66
[2024-08-09 04:32] VITALS: BP 134/64; TEMP 97.2; O2SAT 97
[2024-08-09] MEDS: MOM 30ML SUSPENSION UDC PO PRN (09:05)
[2024-08-09 12:14] VITALS: BP 131/72
[2024-08-09 17:07] VITALS: BP 142/87
[2024-08-09] MEDS: PREPARATION H OINTMENT (HEMORRHOID) PR PRN (18:14)
[2024-08-10 05:06] VITALS: BP 119/54; TEMP 97.5; O2SAT 94
[2024-08-10 11:50] VITALS: BP 125/70
[2024-08-11 04:15] VITALS: BP 116/60; TEMP 98.1; O2SAT 96
[2024-08-11 10:49] LABS: HEMATOCRIT 32.5 % (36.0-47.0); HEMOGLOBIN 10.5 g/dl (12.0-15.5); MEAN CORPUSCULAR HEMOGLOBIN 30.8 pg (27.0-33.0); MEAN CORPUSCULAR HGB CONC 32.3 g/dl (32.0-36.5); MEAN CORPUSCULAR VOLUME 95.3 fl (80.0-96.0); PLATELET COUNT, AUTOMATED 228 10^3/uL (150-450); RED BLOOD COUNT 3.41 10^6/uL (4.00-5.40); WHITE BLOOD COUNT 3.8 10^3/uL (4.0-10.0)
[2024-08-11 11:20] LABS: BLOOD UREA NITROGEN < 5 MG/DL (9-23); CARBON DIOXIDE LEVEL 27 MMOL/L (20-31); CHLORIDE LEVEL 101 MMOL/L (98-107); CREATININE FOR GFR 0.38 MG/DL (0.55-1.30); GLOMERULAR FILTRATION RATE > 60.0 (>45); GLUCOSE, FASTING 95 MG/DL (74-106); SODIUM LEVEL 135 MMOL/L (136-145)
[2024-08-11] MEDS ORDERED: LOPERAMIDE 2 MG CAPLET PO PRN (13:55)
[2024-08-11] MEDS: TORSEMIDE 20 MG TAB PO SCH (15:17)
[2024-08-12 04:29] VITALS: BP 105/58; TEMP 97.3; O2SAT 97
[2024-08-13 04:00] VITALS: BP 114/60; TEMP 98.6; O2SAT 94
[2024-08-13 15:32] VITALS: BP 123/73
[2024-08-14 04:00] VITALS: BP 110/71; TEMP 97.1; O2SAT 96
[2024-08-14 11:21] LABS: HEMATOCRIT 34.5 % (36.0-47.0); HEMOGLOBIN 11.2 g/dl (12.0-15.5); MEAN CORPUSCULAR HEMOGLOBIN 30.7 pg (27.0-33.0); MEAN CORPUSCULAR HGB CONC 32.5 g/dl (32.0-36.5); MEAN CORPUSCULAR VOLUME 94.5 fl (80.0-96.0); PLATELET COUNT, AUTOMATED 269 10^3/uL (150-450); RED BLOOD COUNT 3.65 10^6/uL (4.00-5.40); WHITE BLOOD COUNT 5.5 10^3/uL (4.0-10.0)
[2024-08-15 05:04] VITALS: BP 113/68; TEMP 97.3; O2SAT 98
[2024-08-15 05:47] LABS: HEMATOCRIT 32.5 % (36.0-47.0); HEMOGLOBIN 10.4 g/dl (12.0-15.5); MEAN CORPUSCULAR HEMOGLOBIN 30.4 pg (27.0-33.0); PLATELET COUNT, AUTOMATED 234 10^3/uL (150-450); RED BLOOD COUNT 3.42 10^6/uL (4.00-5.40); WHITE BLOOD COUNT 4.4 10^3/uL (4.0-10.0)
[2024-08-15 12:40] VITALS: BP 143/73
[2024-08-16 03:44] VITALS: TEMP 97.9
[2024-08-16 03:45] VITALS: BP 122/61; TEMP 97.9; O2SAT 94
[2024-08-16] MEDS ORDERED: medroxyPROGESTERone 5MG TABLET PO SCH (09:00)
[2024-08-16 09:25] VITALS: BP 114/59
[2024-08-16 12:07] VITALS: BP 125/71
[2024-08-17 04:00] VITALS: BP 110/61; TEMP 97.5; O2SAT 97
[2024-08-17 04:38] VITALS: TEMP 97.5
[2024-08-17 04:39] VITALS: BP 110/61
[2024-08-17 08:33] VITALS: BP 114/61
[2024-08-17 12:35] VITALS: BP 106/57
[2024-08-17 17:02] VITALS: BP 134/65
[2024-08-18 06:28] VITALS: BP 117/71; TEMP 97.3; O2SAT 99
[2024-08-18 10:59] LABS: HEMATOCRIT 35.6 % (36.0-47.0); HEMOGLOBIN 11.4 g/dl (12.0-15.5); MEAN CORPUSCULAR HEMOGLOBIN 30.2 pg (27.0-33.0); MEAN CORPUSCULAR VOLUME 94.4 fl (80.0-96.0); PLATELET COUNT, AUTOMATED 248 10^3/uL (150-450); RED BLOOD COUNT 3.77 10^6/uL (4.00-5.40); WHITE BLOOD COUNT 4.8 10^3/uL (4.0-10.0)
[2024-08-18 11:28] LABS: BLOOD UREA NITROGEN 6 MG/DL (9-23); CALCIUM LEVEL 8.6 MG/DL (8.3-10.6); CARBON DIOXIDE LEVEL 32 MMOL/L (20-31); CHLORIDE LEVEL 96 MMOL/L (98-107); CREATININE FOR GFR 0.43 MG/DL (0.55-1.30); GLOMERULAR FILTRATION RATE > 60.0 (>45); GLUCOSE, FASTING 124 MG/DL (74-106); POTASSIUM SERUM 3.8 MMOL/L (3.5-5.1); SODIUM LEVEL 136 MMOL/L (136-145)
[2024-08-18 12:08] VITALS: BP 116/64
[2024-08-19 04:00] VITALS: BP 112/61; TEMP 97.5; O2SAT 95
[2024-08-19 04:51] VITALS: BP 153/85; TEMP 97.5
[2024-08-19 12:13] VITALS: BP 128/76
[2024-08-19 16:37] VITALS: BP 128/67
[2024-08-20 04:37] VITALS: BP 107/58; TEMP 97.3; O2SAT 96
[2024-08-21 04:34] VITALS: BP 101/55; TEMP 97.3; O2SAT 96
[2024-08-21 04:35] VITALS: BP 101/55; TEMP 97.3
[2024-08-21 09:09] VITALS: BP 117/65
[2024-08-21 11:14] LABS: HEMATOCRIT 32.9 % (36.0-47.0); HEMOGLOBIN 10.8 g/dl (12.0-15.5); MEAN CORPUSCULAR HEMOGLOBIN 30.3 pg (27.0-33.0); MEAN CORPUSCULAR HGB CONC 32.8 g/dl (32.0-36.5); MEAN CORPUSCULAR VOLUME 92.2 fl (80.0-96.0); PLATELET COUNT, AUTOMATED 265 10^3/uL (150-450); RED BLOOD COUNT 3.57 10^6/uL (4.00-5.40); WHITE BLOOD COUNT 5.2 10^3/uL (4.0-10.0)
[2024-08-21 13:29] VITALS: BP 119/65
[2024-08-22] VITALS (9 sets, daily range): BP systolic 92–122; BP diastolic 52–65; TEMP 97–98.1; O2SAT 92–96
[2024-08-22] MEDS: LEVONORGESTREL 52MG (MIRENA) IUD As Ordered ONE (17:53)
[2024-08-22] MEDS: DEXTROSE 50% 50ML SYRINGE IV STA (18:12)
[2024-08-22] MEDS ORDERED: DEXTROSE 50% 50ML SYRINGE As Ordered ONE (18:15)
[2024-08-23 04:33] VITALS: BP 104/57; TEMP 97.9; O2SAT 92
[2024-08-23 08:00] VITALS: BP 111/60; TEMP 97.6; O2SAT 95
[2024-08-23 12:00] VITALS: BP 114/75; TEMP 97.2; O2SAT 97
[2024-08-23] MEDS: APIXABAN 5 MG TAB (ELIQUIS) PO SCH (12:15)
[2024-08-24 04:08] VITALS: BP 113/55; TEMP 97.5; O2SAT 94
[2024-08-25 04:19] VITALS: BP 116/60; TEMP 97.2; O2SAT 96
[2024-08-25 11:08] LABS: HEMATOCRIT 36.6 % (36.0-47.0); HEMOGLOBIN 11.8 g/dl (12.0-15.5); MEAN CORPUSCULAR HEMOGLOBIN 29.7 pg (27.0-33.0); MEAN CORPUSCULAR HGB CONC 32.2 g/dl (32.0-36.5); MEAN CORPUSCULAR VOLUME 92.2 fl (80.0-96.0); PLATELET COUNT, AUTOMATED 230 10^3/uL (150-450); RED BLOOD COUNT 3.97 10^6/uL (4.00-5.40); WHITE BLOOD COUNT 5.2 10^3/uL (4.0-10.0)
[2024-08-25 11:42] LABS: BLOOD UREA NITROGEN 8 MG/DL (9-23); CALCIUM LEVEL 8.8 MG/DL (8.3-10.6); CARBON DIOXIDE LEVEL 25 MMOL/L (20-31); CHLORIDE LEVEL 100 MMOL/L (98-107); CREATININE FOR GFR 0.42 MG/DL (0.55-1.30); GLOMERULAR FILTRATION RATE > 60.0 (>45); GLUCOSE, FASTING 99 MG/DL (74-106); SODIUM LEVEL 134 MMOL/L (136-145)
[2024-08-26 03:47] VITALS: BP 112/59; TEMP 97.2; O2SAT 96
[2024-08-26 08:23] VITALS: TEMP 97.3
[2024-08-26 08:24] VITALS: BP 114/66
[2024-08-27 04:14] VITALS: BP 115/67; TEMP 97.5; O2SAT 95
[2024-08-27 04:15] VITALS: BP 115/67; TEMP 97.5
[2024-08-27 08:22] VITALS: BP 108/65
[2024-08-27 08:24] VITALS: BP 108/65
[2024-08-27 12:38] VITALS: BP 136/98
[2024-08-28 04:20] VITALS: BP 124/78; TEMP 98.1; O2SAT 96
[2024-08-28 10:45] LABS: HEMOGLOBIN 10.9 g/dl (12.0-15.5); MEAN CORPUSCULAR HEMOGLOBIN 29.9 pg (27.0-33.0); MEAN CORPUSCULAR VOLUME 90.4 fl (80.0-96.0); PLATELET COUNT, AUTOMATED 225 10^3/uL (150-450); RED BLOOD COUNT 3.65 10^6/uL (4.00-5.40); WHITE BLOOD COUNT 4.8 10^3/uL (4.0-10.0)
[2024-08-28] MEDS ORDERED: MIRA33506 PO (17:18)
[2024-08-28] MEDS ORDERED: MAGN400T2 PO (17:18)
[2024-08-28] MEDS ORDERED: OXYB5TAB14 PO (17:18)
[2024-08-28] MEDS ORDERED: POTA-298 PO (17:18)
[2024-08-28] MEDS ORDERED: MIDO5TA PO (17:18)
[2024-08-28] MEDS ORDERED: THERTAB19 PO (17:18)
[2024-08-28] MEDS ORDERED: ELIQ5TAB PO (17:18)
[2024-08-28] MEDS ORDERED: METO1TAB87 PO (17:22)
[2024-08-28] MEDS ORDERED: SENN-52 PO (17:29)
[2024-08-28] MEDS ORDERED: TORS20TA2 PO (17:29)
[2024-08-29 04:26] VITALS: BP 118/57; TEMP 97.7; O2SAT 97
[2024-08-29 09:13] VITALS: BP 119/60
[2024-08-29] MEDS ORDERED: RAME8TAB2 PO (11:46)
[2024-08-29 13:14] VITALS: BP 128/72
[2024-08-29] MEDS ORDERED: ELIQ5TAB PO (21:44)
[2024-08-29] MEDS ORDERED: METO25TA4 PO (21:44)
[2024-08-29] MEDS ORDERED: MAGN400T2 PO (21:44)
[2024-08-29] MEDS ORDERED: MIDO5TA PO (21:44)
[2024-08-29] MEDS ORDERED: MIRA3350 PO (21:56)
[2024-08-29] MEDS ORDERED: THERTAB19 PO (21:56)
[2024-08-29] MEDS ORDERED: OXYB5TAB14 PO (21:56)
[2024-08-29] MEDS ORDERED: ROZE8TAB16 PO (21:56)
[2024-08-29] MEDS ORDERED: SENN-52 PO (21:56)
== END 2024-08-29 14:45 | disposition home health service (06) | DRG 201 ==
LOC: EDBD 17:24 → M ED 17:24 → M ED INP 17:25 → OBSVTOIN 18:02 → M MSPAV 06-21 05:00 → M PCU 06-22 17:44 → M MS5PR 06-28 18:30 → M PCU 07-19 18:20 → M MS5PR 08-04 11:38
PROVIDERS: ADMIT Obstetrics & Gynecology; ATTEND Internal Medicine
PROC: 0UC98ZZ Extirpation of Matter from Uterus, Via Natural or Artificial Opening Endoscopic (ICD-10-PCS; principal; 2024-06-21 10:40)
PROC: 0UH97HZ Insertion of Contraceptive Device into Uterus, Via Natural or Artificial Opening (ICD-10-PCS; 2024-08-22)
PROC: 0UC98ZZ Extirpation of Matter from Uterus, Via Natural or Artificial Opening Endoscopic (ICD-10-PCS; 2024-08-22)
DX: I48.91 Unspecified atrial fibrillation (principal); R65.20 Severe sepsis without septic shock; D61.818 Other pancytopenia; L89.301 Pressure ulcer of unspecified buttock, stage 1; E87.20 Acidosis, unspecified; D69.6 Thrombocytopenia, unspecified; E87.1 Hypo-osmolality and hyponatremia; J45.901 Unspecified asthma with (acute) exacerbation; T81.44XA Sepsis following a procedure, initial encounter; T83.518A Infection and inflammatory reaction due to other urinary catheter, initial encounter; B97.4 Respiratory syncytial virus as the cause of diseases classified elsewhere; E66.01 Morbid (severe) obesity due to excess calories; E83.42 Hypomagnesemia; E88.09 Other disorders of plasma-protein metabolism, not elsewhere classified; Z68.43 Body mass index [BMI] 50.0-59.9, adult; K76.0 Fatty (change of) liver, not elsewhere classified; B96.20 Unspecified Escherichia coli [E. coli] as the cause of diseases classified elsewhere; E11.9 Type 2 diabetes mellitus without complications; E78.5 Hyperlipidemia, unspecified; E87.6 Hypokalemia; F10.10 Alcohol abuse, uncomplicated; G47.33 Obstructive sleep apnea (adult) (pediatric); I10 Essential (primary) hypertension; I45.5 Other specified heart block; K21.9 Gastro-esophageal reflux disease without esophagitis; N39.0 Urinary tract infection, site not specified; N95.0 Postmenopausal bleeding; K59.00 Constipation, unspecified; R33.9 Retention of urine, unspecified; I89.0 Lymphedema, not elsewhere classified; Z79.899 Other long term (current) drug therapy; G25.0 Essential tremor; I87.8 Other specified disorders of veins; M19.90 Unspecified osteoarthritis, unspecified site; R00.1 Bradycardia, unspecified; Y84.6 Urinary catheterization as the cause of abnormal reaction of the patient, or of later complication, without mention of misadventure at the time of the procedure

== ENCOUNTER 2024-08-29 17:29 | Inpatient (IN) | payer MEDICAID, SELFPAY ==
[~2024-08-29] VITALS: Ht 165.1 cm; Wt 129.8 kg
[~2024-08-29 17:29] MED LIST changes: +ELIQ5TAB PO; +MAGN400T2 PO; +METO1TAB87 PO; +MIDO5TA PO; +MILK175C6 PO; +MIRA33506 PO; +OMEG10002 PO; +OMEP40CA5 PO; +OXYB5TAB14 PO; +POTA-151 PO; +POTA-298 PO; +RAME8TAB2 PO; +SENN-52 PO; +THERTAB19 PO; +TORS20TA2 PO; +VITAD1000T PO
[2024-08-29] MEDS: MORPHINE 4 MG/ML 1ML VIAL IV ONE ×2 (19:09→21:12)
[2024-08-29] MEDS: ONDANSETRON 4MG 2ML VIAL IV ONE (19:09)
[2024-08-29] MEDS: LIDOCAINE 2% 5ML JELLY UROJET TOP ONE (21:02)
[2024-08-29 21:25] LABS: BASO % 0.4 % (0.0-1.0); EOS % 0.4 % (0.0-3.0); HEMATOCRIT 33.2 % (36.0-47.0); HEMOGLOBIN 10.9 g/dl (12.0-15.5); LYMPH # 1.1 10^3/uL (1.5-5.0); MEAN CORPUSCULAR HEMOGLOBIN 29.7 pg (27.0-33.0); MEAN CORPUSCULAR HGB CONC 32.8 g/dl (32.0-36.5); MEAN CORPUSCULAR VOLUME 90.5 fl (80.0-96.0); MONO # 0.4 10^3/uL (0.0-0.8); MONO % 3.4 % (2.0-8.0); NEUTROPHILS # 9.5 10^3/uL (1.5-8.5); NEUTROPHILS % 85.4 % (36.0-66.0); PLATELET COUNT, AUTOMATED 244 10^3/uL (150-450); RED BLOOD COUNT 3.67 10^6/uL (4.00-5.40); WHITE BLOOD COUNT 11.1 10^3/uL (4.0-10.0)
[2024-08-29 21:35] LABS: INR 1.5; PROTHROMBIN TIME 18.4 SECONDS (12.5-14.5)
[2024-08-29] MEDS ORDERED: DEXTROSE 50% 50ML SYRINGE IV PRN (21:35)
[2024-08-29] MEDS ORDERED: INSULIN LISPRO (NovoLOG) PER UNIT SC SCH (21:35)
[2024-08-29] MEDS ORDERED: GLUCOSE 4 GM CHEW PO PRN (21:35)
[2024-08-29] MEDS ORDERED: GLUCAGON INJ 1MG VIAL SC PRN (21:35)
[2024-08-29] MEDS ORDERED: ELIQ5TAB PO (21:44)
[2024-08-29] MEDS ORDERED: METO25TA4 PO (21:44)
[2024-08-29] MEDS ORDERED: MAGN400T2 PO (21:44)
[2024-08-29] MEDS ORDERED: MIDO5TA PO (21:44)
[2024-08-29 21:56] LABS: ALBUMIN 2.5 G/DL (3.2-5.2); ALKALINE PHOSPHATASE 57 U/L (35-104); ALT/SGPT 28 U/L (7.0-40); AST/SGOT 57 U/L (<34); BILIRUBIN,DIRECT 0.3 MG/DL (<0.4); BILIRUBIN,TOTAL 0.6 MG/DL (0.3-1.2); BLOOD UREA NITROGEN 13 MG/DL (9-23); CARBON DIOXIDE LEVEL 27 MMOL/L (20-31); CHLORIDE LEVEL 100 MMOL/L (98-107); CREATININE FOR GFR 0.51 MG/DL (0.55-1.30); GLOMERULAR FILTRATION RATE > 60.0 (>45); GLUCOSE, FASTING 147 MG/DL (74-106); POTASSIUM SERUM 4.3 MMOL/L (3.5-5.1); SODIUM LEVEL 137 MMOL/L (136-145); TOTAL PROTEIN 6.5 G/DL (5.7-8.2)
[2024-08-29] MEDS ORDERED: THERTAB19 PO (21:56)
[2024-08-29] MEDS ORDERED: SENN-52 PO (21:56)
[2024-08-29] MEDS ORDERED: OXYB5TAB14 PO (21:56)
[2024-08-29] MEDS ORDERED: MIRA3350 PO (21:56)
[2024-08-29] MEDS ORDERED: ROZE8TAB16 PO (21:56)
[2024-08-29] MEDS ORDERED: HOME MED LIST COMPLETE! XX SCH (22:00)
[2024-08-29] MEDS: KETOROLAC 30 MG/ML 1ML VIAL IV PRN (22:35)
[2024-08-30] MEDS: PERCOCET 5MG/325MG TAB PO PRN (00:47)
[2024-08-30] MEDS: NS (Normal Saline) 0.9% 1,000 ML IV ONE (01:40)
[2024-08-30] MEDS: VANICREAM MOISTURIZING SKIN CREAM 113GM TUBE TOP SCH (03:06)
[2024-08-30 03:35] LABS: KETONE, URINE AUTO RFX TRACE mg/dL (NEGATIVE); LEUKOCYTE ESTERASE UR AUTO RFX 2+ (NEGATIVE); MUCUS, URINE RFX SMALL (NEGATIVE); NITRITE, URINE AUTO RFX NEGATIVE (NEGATIVE); RBC, URINE AUTO RFX 13 /HPF (0-3); SQUAM EPITHELIAL CELL UR AURFX 1 /HPF (0-6); WBC, URINE AUTO RFX TNTC /HPF (0-3)
[2024-08-30] MEDS: MIDODRINE 5 MG TAB PO SCH ×2 (06:30→11:43)
[2024-08-30 07:26] LABS: HEMATOCRIT 29.6 % (36.0-47.0); HEMOGLOBIN 9.6 g/dl (12.0-15.5); MEAN CORPUSCULAR HEMOGLOBIN 28.8 pg (27.0-33.0); MEAN CORPUSCULAR HGB CONC 32.4 g/dl (32.0-36.5); MEAN CORPUSCULAR VOLUME 88.9 fl (80.0-96.0); PLATELET COUNT, AUTOMATED 249 10^3/uL (150-450); RED BLOOD COUNT 3.33 10^6/uL (4.00-5.40); WHITE BLOOD COUNT 7.4 10^3/uL (4.0-10.0)
[2024-08-30 07:48] LABS: ALBUMIN 2.4 G/DL (3.2-5.2); ALKALINE PHOSPHATASE 52 U/L (35-104); ALT/SGPT 25 U/L (7.0-40); AST/SGOT 39 U/L (<34); BILIRUBIN,TOTAL 0.9 MG/DL (0.3-1.2); BLOOD UREA NITROGEN 15 MG/DL (9-23); CALCIUM LEVEL 8.7 MG/DL (8.3-10.6); CARBON DIOXIDE LEVEL 26 MMOL/L (20-31); CHLORIDE LEVEL 100 MMOL/L (98-107); CREATININE FOR GFR 0.51 MG/DL (0.55-1.30); GLOMERULAR FILTRATION RATE > 60.0 (>45); GLUCOSE, FASTING 126 MG/DL (74-106); POTASSIUM SERUM 3.9 MMOL/L (3.5-5.1); SODIUM LEVEL 135 MMOL/L (136-145)
[2024-08-30] MEDS: ENOXAPARIN 40MG/0.4ML SYRINGE (J1650 PER 10MG) SC ONE (08:37)
[2024-08-30] MEDS: DOCUSATE SODIUM 100MG CAPSULE PO SCH (08:37)
[2024-08-30] MEDS: PANTOPRAZOLE 40MG VIAL IV SCH (08:39)
[2024-08-30 10:16] LABS: MAGNESIUM LEVEL 1.8 MG/DL (1.8-2.4)
[2024-08-30] MEDS: ACETAMINOPHEN 325 MG TAB PO PRN (10:17)
[2024-08-30] MEDS ORDERED: LORATADINE 10 MG TAB PO PRN (11:15)
[2024-08-30] MEDS ORDERED: MIRALAX *UNIT DOSE* 17GM PACKET PO PRN (11:15)
[2024-08-30] MEDS: TORSEMIDE 20 MG TAB PO SCH (11:33)
[2024-08-30 11:50] VITALS: BP 113/73; TEMP 98.2; O2SAT 95
[2024-08-30] MEDS ORDERED: ALBUTEROL 90 MCG/ACT 8GM HFA INHALER INH PRN (12:05)
[2024-08-30] MEDS: oxyBUTYnin 5 MG TAB PO SCH (12:09)
[2024-08-30] MEDS: MAGNESIUM OXIDE 400MG TAB (MAG-OX) PO SCH (15:33)
[2024-08-30] MEDS: METOPROLOL TART 12.5 MG PER 1/2 TAB PO SCH (15:33)
[2024-08-30 19:48] VITALS: BP 121/66; TEMP 97.7; O2SAT 93
[2024-08-30] MEDS: RAMELTEON 8 MG TAB (ROZEREM) PO PRN (20:20)
[2024-08-30] MEDS: SENOKOT S TAB PO SCH (20:21)
[2024-08-31] VITALS (10 sets, daily range): BP systolic 92–122; BP diastolic 56–65; TEMP 97–98.6; O2SAT 91–98
[2024-08-31 06:31] LABS: BASO % 0.7 % (0.0-1.0); EOS # 0.2 10^3/uL (0.0-0.5); EOS % 3.3 % (0.0-3.0); HEMOGLOBIN 8.6 g/dl (12.0-15.5); LYMPH # 1.3 10^3/uL (1.5-5.0); LYMPH % 22.7 % (24.0-44.0); MEAN CORPUSCULAR HEMOGLOBIN 29.4 pg (27.0-33.0); MEAN CORPUSCULAR HGB CONC 33.1 g/dl (32.0-36.5); MEAN CORPUSCULAR VOLUME 88.7 fl (80.0-96.0); MONO # 0.3 10^3/uL (0.0-0.8); MONO % 4.9 % (2.0-8.0); NEUTROPHILS # 3.9 10^3/uL (1.5-8.5); NEUTROPHILS % 67.5 % (36.0-66.0); PLATELET COUNT, AUTOMATED 208 10^3/uL (150-450); RED BLOOD COUNT 2.93 10^6/uL (4.00-5.40); WHITE BLOOD COUNT 5.7 10^3/uL (4.0-10.0)
[2024-08-31 06:46] LABS: ALBUMIN 2.2 G/DL (3.2-5.2); ALKALINE PHOSPHATASE 54 U/L (35-104); ALT/SGPT 18 U/L (7.0-40); AST/SGOT 24 U/L (<34); BILIRUBIN,TOTAL 0.9 MG/DL (0.3-1.2); BLOOD UREA NITROGEN 13 MG/DL (9-23); CALCIUM LEVEL 8.5 MG/DL (8.3-10.6); CARBON DIOXIDE LEVEL 28 MMOL/L (20-31); CHLORIDE LEVEL 102 MMOL/L (98-107); CREATININE FOR GFR 0.43 MG/DL (0.55-1.30); GLOMERULAR FILTRATION RATE > 60.0 (>45); GLUCOSE, FASTING 106 MG/DL (74-106); MAGNESIUM LEVEL 1.8 MG/DL (1.8-2.4); POTASSIUM SERUM 3.8 MMOL/L (3.5-5.1); SODIUM LEVEL 137 MMOL/L (136-145); TOTAL PROTEIN 5.7 G/DL (5.7-8.2)
[2024-08-31] MEDS: ceFAZolin SODIUM 3 GM VIAL As Ordered ONE (08:25)
[2024-08-31] MEDS ORDERED: LIDOCAINE 2% 100MG/5ML SDV (FOR ANES.) As Ordered ONE (08:44)
[2024-08-31] MEDS ORDERED: MIDAZOLAM INJ 2MG/2ML VIAL As Ordered ONE (08:44)
[2024-08-31] MEDS ORDERED: ROCURONIUM BROMIDE 50MG/5ML VIAL As Ordered ONE (08:44)
[2024-08-31] MEDS ORDERED: fentaNYL 250 MCG/5 ML INJECTION As Ordered ONE (08:44)
[2024-08-31] MEDS ORDERED: propofoL 200 MG/20 ML VIAL As Ordered ONE (08:44)
[2024-08-31] MEDS ORDERED: SUGAMMADEX SODIUM 500 MG/5 ML VIAL (BRIDION) As Ordered ONE (08:44)
[2024-08-31] MEDS ORDERED: PHENYLephrine 500MCG 5ML (100MCG/ML) SYRINGE As Ordered ONE (08:45)
[2024-08-31] MEDS ORDERED: ONDANSETRON 4MG 2ML VIAL As Ordered ONE (08:49)
[2024-08-31] MEDS ORDERED: ACETAMINOPHEN 1000MG/100ML IV BAG As Ordered ONE (08:52)
[2024-08-31] MEDS: MULTIVITAMINS/MINERALS THERAP 1 TAB PO SCH (09:00)
[2024-08-31] MEDS: VITAMIN D 1,000 INTERNATIONAL UNITS TABLET PO SCH (09:00)
[2024-08-31] MEDS: ceFAZolin SODIUM 2 GM in DEXTROSE 5% (D5W) ADV/MINI-BAG 50 ML IV SCH (16:55)
[2024-09-01] VITALS (17 sets, daily range): BP systolic 83–127; BP diastolic 50–78; TEMP 97.2–98.3; O2SAT 92–96
[2024-09-01 03:11] LABS: BASO % 0.4 % (0.0-1.0); EOS # 0.1 10^3/uL (0.0-0.5); EOS % 1.1 % (0.0-3.0); HEMATOCRIT 21.9 % (36.0-47.0); HEMOGLOBIN 7.2 g/dl (12.0-15.5); LYMPH # 1.8 10^3/uL (1.5-5.0); LYMPH % 19.5 % (24.0-44.0); MEAN CORPUSCULAR HEMOGLOBIN 29.5 pg (27.0-33.0); MEAN CORPUSCULAR HGB CONC 32.9 g/dl (32.0-36.5); MEAN CORPUSCULAR VOLUME 89.8 fl (80.0-96.0); MONO # 0.5 10^3/uL (0.0-0.8); MONO % 5.1 % (2.0-8.0); NEUTROPHILS # 6.7 10^3/uL (1.5-8.5); NEUTROPHILS % 73.1 % (36.0-66.0); PLATELET COUNT, AUTOMATED 243 10^3/uL (150-450); RED BLOOD COUNT 2.44 10^6/uL (4.00-5.40); WHITE BLOOD COUNT 9.2 10^3/uL (4.0-10.0)
[2024-09-01 03:20] LABS: INR 1.34; PARTIAL THROMBOPLASTIN TIME 32.3 SECONDS (24.8-34.2); PROTHROMBIN TIME 16.9 SECONDS (12.5-14.5)
[2024-09-01 03:27] LABS: BLOOD UREA NITROGEN 15 MG/DL (9-23); CALCIUM LEVEL 8.2 MG/DL (8.3-10.6); CARBON DIOXIDE LEVEL 28 MMOL/L (20-31); CHLORIDE LEVEL 97 MMOL/L (98-107); CREATININE FOR GFR 0.53 MG/DL (0.55-1.30); GLOMERULAR FILTRATION RATE > 60.0 (>45); GLUCOSE, FASTING 155 MG/DL (74-106); POTASSIUM SERUM 4.4 MMOL/L (3.5-5.1); SODIUM LEVEL 132 MMOL/L (136-145)
[2024-09-01] MEDS: NS (Normal Saline) 0.9% 1,000 ML IV ONE (04:14)
[2024-09-01 06:35] LABS: BASO % 0.5 % (0.0-1.0); EOS # 0.1 10^3/uL (0.0-0.5); EOS % 1.7 % (0.0-3.0); HEMATOCRIT 22.8 % (36.0-47.0); HEMOGLOBIN 7.5 g/dl (12.0-15.5); LYMPH # 1.8 10^3/uL (1.5-5.0); LYMPH % 22.4 % (24.0-44.0); MEAN CORPUSCULAR HEMOGLOBIN 29.4 pg (27.0-33.0); MEAN CORPUSCULAR HGB CONC 32.9 g/dl (32.0-36.5); MEAN CORPUSCULAR VOLUME 89.4 fl (80.0-96.0); MONO # 0.4 10^3/uL (0.0-0.8); MONO % 4.8 % (2.0-8.0); NEUTROPHILS # 5.6 10^3/uL (1.5-8.5); NEUTROPHILS % 69.2 % (36.0-66.0); PLATELET COUNT, AUTOMATED 220 10^3/uL (150-450); RED BLOOD COUNT 2.55 10^6/uL (4.00-5.40); WHITE BLOOD COUNT 8.1 10^3/uL (4.0-10.0)
[2024-09-01 06:48] LABS: ALKALINE PHOSPHATASE 48 U/L (35-104); ALT/SGPT 12 U/L (7.0-40); AST/SGOT 20 U/L (<34); BILIRUBIN,TOTAL 0.8 MG/DL (0.3-1.2); BLOOD UREA NITROGEN 14 MG/DL (9-23); CARBON DIOXIDE LEVEL 26 MMOL/L (20-31); CHLORIDE LEVEL 99 MMOL/L (98-107); CREATININE FOR GFR 0.45 MG/DL (0.55-1.30); GLOMERULAR FILTRATION RATE > 60.0 (>45); GLUCOSE, FASTING 143 MG/DL (74-106); POTASSIUM SERUM 4.2 MMOL/L (3.5-5.1); SODIUM LEVEL 132 MMOL/L (136-145); TOTAL PROTEIN 5.1 G/DL (5.7-8.2)
[2024-09-01 16:10] LABS: HEMATOCRIT 24.6 % (36.0-47.0); HEMOGLOBIN 8.3 g/dl (12.0-15.5)
[2024-09-02] VITALS (8 sets, daily range): BP systolic 91–132; BP diastolic 43–68; TEMP 96.9–98; O2SAT 96–99
[2024-09-02 07:25] LABS: BASO # 0.1 10^3/uL (0.0-0.2); BASO % 0.8 % (0.0-1.0); EOS # 0.3 10^3/uL (0.0-0.5); EOS % 3.8 % (0.0-3.0); HEMATOCRIT 28.9 % (36.0-47.0); HEMOGLOBIN 9.8 g/dl (12.0-15.5); LYMPH # 1.5 10^3/uL (1.5-5.0); LYMPH % 20.1 % (24.0-44.0); MEAN CORPUSCULAR HEMOGLOBIN 30.2 pg (27.0-33.0); MEAN CORPUSCULAR HGB CONC 33.9 g/dl (32.0-36.5); MEAN CORPUSCULAR VOLUME 89.2 fl (80.0-96.0); MONO # 0.4 10^3/uL (0.0-0.8); MONO % 5.4 % (2.0-8.0); NEUTROPHILS % 67.7 % (36.0-66.0); PLATELET COUNT, AUTOMATED 208 10^3/uL (150-450); RED BLOOD COUNT 3.24 10^6/uL (4.00-5.40); WHITE BLOOD COUNT 7.4 10^3/uL (4.0-10.0)
[2024-09-02 08:02] LABS: ALBUMIN 2.2 G/DL (3.2-5.2); ALKALINE PHOSPHATASE 56 U/L (35-104); ALT/SGPT 11 U/L (7.0-40); AST/SGOT 20 U/L (<34); BLOOD UREA NITROGEN 11 MG/DL (9-23); CALCIUM LEVEL 8.2 MG/DL (8.3-10.6); CARBON DIOXIDE LEVEL 28 MMOL/L (20-31); CHLORIDE LEVEL 96 MMOL/L (98-107); CREATININE FOR GFR 0.39 MG/DL (0.55-1.30); GLOMERULAR FILTRATION RATE > 60.0 (>45); GLUCOSE, FASTING 125 MG/DL (74-106); MAGNESIUM LEVEL 1.8 MG/DL (1.8-2.4); SODIUM LEVEL 130 MMOL/L (136-145); TOTAL PROTEIN 5.4 G/DL (5.7-8.2)
[2024-09-02] MEDS: diphenhydrAMINE 50MG CAP PO PRN (15:18)
[2024-09-02] MEDS: TORSEMIDE 20 MG TAB PO SCH (17:08)
[2024-09-03 04:09] VITALS: BP 107/50; TEMP 97.3; O2SAT 97
[2024-09-03 05:52] LABS: BASO % 0.5 % (0.0-1.0); EOS # 0.2 10^3/uL (0.0-0.5); EOS % 3.3 % (0.0-3.0); HEMATOCRIT 28.2 % (36.0-47.0); HEMOGLOBIN 9.4 g/dl (12.0-15.5); LYMPH # 1.6 10^3/uL (1.5-5.0); LYMPH % 27.8 % (24.0-44.0); MEAN CORPUSCULAR HEMOGLOBIN 30.1 pg (27.0-33.0); MEAN CORPUSCULAR HGB CONC 33.3 g/dl (32.0-36.5); MEAN CORPUSCULAR VOLUME 90.4 fl (80.0-96.0); MONO # 0.4 10^3/uL (0.0-0.8); MONO % 6.3 % (2.0-8.0); NEUTROPHILS # 3.4 10^3/uL (1.5-8.5); NEUTROPHILS % 60.5 % (36.0-66.0); PLATELET COUNT, AUTOMATED 186 10^3/uL (150-450); RED BLOOD COUNT 3.12 10^6/uL (4.00-5.40); WHITE BLOOD COUNT 5.7 10^3/uL (4.0-10.0)
[2024-09-03 06:07] LABS: ALBUMIN 1.9 G/DL (3.2-5.2); ALKALINE PHOSPHATASE 58 U/L (35-104); ALT/SGPT 10 U/L (7.0-40); AST/SGOT 16 U/L (<34); BILIRUBIN,TOTAL 0.8 MG/DL (0.3-1.2); BLOOD UREA NITROGEN 9 MG/DL (9-23); CARBON DIOXIDE LEVEL 29 MMOL/L (20-31); CHLORIDE LEVEL 98 MMOL/L (98-107); CREATININE FOR GFR 0.39 MG/DL (0.55-1.30); GLOMERULAR FILTRATION RATE > 60.0 (>45); GLUCOSE, FASTING 113 MG/DL (74-106); MAGNESIUM LEVEL 1.6 MG/DL (1.8-2.4); POTASSIUM SERUM 3.5 MMOL/L (3.5-5.1); SODIUM LEVEL 133 MMOL/L (136-145); TOTAL PROTEIN 5.2 G/DL (5.7-8.2)
[2024-09-03 07:35] VITALS: BP 116/84; TEMP 98.9; O2SAT 96
[2024-09-03] MEDS: MAG SULF 1GM/100ML (MAG RUN) 1 GM in IV 1 EA IV SCH (08:16)
[2024-09-03 11:03] VITALS: BP 101/54; TEMP 98.6; O2SAT 95
[2024-09-03] MEDS: APIXABAN 5 MG TAB (ELIQUIS) PO SCH (11:07)
[2024-09-03 15:53] VITALS: BP 99/50; TEMP 98.5; O2SAT 98
[2024-09-03 19:42] VITALS: BP 112/55; TEMP 97; O2SAT 98
[2024-09-04 07:51] VITALS: BP 139/57; TEMP 97.6; O2SAT 98
[2024-09-04] MEDS: PERCOCET 5MG/325MG TAB PO PRN (08:41)
[2024-09-04] MEDS: BISACODYL 10MG SUPP PR ONE (08:42)
[2024-09-04 10:00] VITALS: BP 144/62
[2024-09-04] MEDS ORDERED: PERCOCET PO (10:41)
[2024-09-04] MEDS ORDERED: MAGN400T2 PO (10:41)
[2024-09-04] MEDS ORDERED: VANI1CRE5 TOP (10:41)
[2024-09-04] MEDS ORDERED: MIDO5TA PO (10:41)
[2024-09-04] MEDS: MIRALAX *UNIT DOSE* 17GM PACKET PO SCH (14:39)
[2024-09-04 16:42] VITALS: BP 99/55
[2024-09-04 19:49] VITALS: BP 118/58; TEMP 97.5; O2SAT 95
[2024-09-05 08:02] VITALS: BP 105/59; TEMP 97.2; O2SAT 100
[2024-09-05] MEDS: PANTOPRAZOLE 40MG TAB (PROTONIX) PO SCH (08:57)
[2024-09-05 10:41] VITALS: BP 122/58
[2024-09-05 11:51] VITALS: BP 113/62; TEMP 98.4; O2SAT 100
[2024-09-05 16:42] VITALS: BP 125/58
[2024-09-06 03:59] VITALS: BP 114/57; TEMP 98.1; O2SAT 94
[2024-09-06 08:43] VITALS: BP 116/60
[2024-09-06 12:04] VITALS: BP 115/60
[2024-09-06 16:20] VITALS: BP 132/76
[2024-09-07 04:56] VITALS: BP 104/60; TEMP 97.9; O2SAT 97
[2024-09-07 08:56] VITALS: BP 108/63
[2024-09-07 12:14] VITALS: BP 125/83
[2024-09-07 15:23] VITALS: BP 138/67
[2024-09-08] MEDS: DOCUSATE SODIUM 100MG CAPSULE PO PRN (12:40)
[2024-09-08] MEDS: MIRALAX *UNIT DOSE* 17GM PACKET PO SCH (17:38)
[2024-09-09 03:10] VITALS: BP 111/62; TEMP 97.9; O2SAT 94
[2024-09-09] MEDS: methocarbamoL 750 MG TAB PO PRN (03:28)
[2024-09-09 12:38] VITALS: BP 127/68
[2024-09-10 03:41] VITALS: BP 109/56; TEMP 97.3; O2SAT 96
[2024-09-10 12:00] VITALS: BP 126/72
[2024-09-10] MEDS: PREPARATION H OINTMENT (HEMORRHOID) PR PRN (16:36)
[2024-09-11 03:29] VITALS: BP 106/64; TEMP 97.7; O2SAT 96
[2024-09-12 03:58] VITALS: BP 108/65; TEMP 97.3; O2SAT 94
[2024-09-12 11:52] VITALS: BP 110/65; TEMP 97.9; O2SAT 97
[2024-09-13 04:20] VITALS: BP 104/64; TEMP 97.3; O2SAT 92
[2024-09-13 12:55] LABS: HEMATOCRIT 33.9 % (36.0-47.0); MEAN CORPUSCULAR HEMOGLOBIN 30.1 pg (27.0-33.0); MEAN CORPUSCULAR HGB CONC 32.4 g/dl (32.0-36.5); MEAN CORPUSCULAR VOLUME 92.6 fl (80.0-96.0); PLATELET COUNT, AUTOMATED 366 10^3/uL (150-450); RED BLOOD COUNT 3.66 10^6/uL (4.00-5.40)
[2024-09-13 13:46] LABS: BLOOD UREA NITROGEN 11 MG/DL (9-23); CALCIUM LEVEL 8.8 MG/DL (8.3-10.6); CARBON DIOXIDE LEVEL 39 MMOL/L (20-31); CHLORIDE LEVEL 84 MMOL/L (98-107); CREATININE FOR GFR 0.43 MG/DL (0.55-1.30); GLOMERULAR FILTRATION RATE > 90.0 (>45); GLUCOSE, FASTING 128 MG/DL (74-106); POTASSIUM SERUM 2.8 MMOL/L (3.5-5.1); SODIUM LEVEL 133 MMOL/L (136-145)
[2024-09-13] MEDS ORDERED: MAG SULF 1GM/100ML (MAG RUN) 1 GM in IV 1 EA IV SCH (13:55)
[2024-09-13] MEDS: POTASSIUM CHLORIDE 10MEQ SR TABLET PO SCH (15:10)
[2024-09-13] MEDS: KCL 10MEQ/100ML SWI (KRUN) 10 MEQ in IV 1 EA IV SCH (15:19)
[2024-09-13 20:30] VITALS: BP 120/61
[2024-09-14 03:40] VITALS: BP 119/62; TEMP 97.3; O2SAT 93
[2024-09-14 06:38] LABS: BLOOD UREA NITROGEN 13 MG/DL (9-23); CALCIUM LEVEL 9.1 MG/DL (8.3-10.6); CARBON DIOXIDE LEVEL 40 MMOL/L (20-31); CHLORIDE LEVEL 88 MMOL/L (98-107); CREATININE FOR GFR 0.45 MG/DL (0.55-1.30); GLOMERULAR FILTRATION RATE > 90.0 (>45); GLUCOSE, FASTING 103 MG/DL (74-106); POTASSIUM SERUM 3.5 MMOL/L (3.5-5.1); SODIUM LEVEL 134 MMOL/L (136-145)
[2024-09-14 08:07] VITALS: BP 112/60; TEMP 97.9
[2024-09-14] MEDS: POTASSIUM CHLORIDE 10MEQ SR TABLET PO SCH (08:09)
[2024-09-14 09:50] LABS: HEMOGLOBIN 10.6 g/dl (12.0-15.5); MEAN CORPUSCULAR HEMOGLOBIN 29.9 pg (27.0-33.0); MEAN CORPUSCULAR HGB CONC 31.2 g/dl (32.0-36.5); MEAN CORPUSCULAR VOLUME 95.8 fl (80.0-96.0); PLATELET COUNT, AUTOMATED 354 10^3/uL (150-450); RED BLOOD COUNT 3.55 10^6/uL (4.00-5.40); WHITE BLOOD COUNT 4.5 10^3/uL (4.0-10.0)
[2024-09-14 10:23] VITALS: BP 146/67; TEMP 97; O2SAT 99
[2024-09-14 15:53] LABS: VENOUS BASE EXCESS 12.4 (-2.0-2.0); VENOUS HCO3 38.1 MMOL/L (23.0-27.0); VENOUS O2 SATURATION 88.3 % (60.0-80.0); VENOUS PARTIAL PRESSURE CO2 54.6 mmHg (38.0-50.0); VENOUS PARTIAL PRESSURE O2 54.1 mmHg (30.0-50.0); VENOUS PH 7.462 UNITS (7.330-7.430); VENOUS TOTAL CO2 39.8 MMOL/L (24.0-28.0)
[2024-09-15 04:00] VITALS: BP 129/67; TEMP 97.3; O2SAT 97
[2024-09-15] MEDS: NYSTATIN 100,000 UNITS/GM TOPICAL PWD 15GM TOP PRN (04:16)
[2024-09-15 09:50] VITALS: BP 127/69
== END 2024-09-15 13:55 | DRG 308 ==
LOC: M ED 17:29 → EDBD 17:29 → EEVIPCON 21:33 → M ED INP 21:33 → M MS5PR 08-30 11:50 → M PCU 09-01 08:30 → M MSPAV 09-05 15:14
PROVIDERS: ADMIT Student in an Organized Health Care Education/Training Program; ATTEND Student in an Organized Health Care Education/Training Program
PROC: 0QSC34Z Reposition Left Lower Femur with Internal Fixation Device, Percutaneous Approach (ICD-10-PCS; principal; 2024-08-31 08:00)
PROC: 30233N1 Transfusion of Nonautologous Red Blood Cells into Peripheral Vein, Percutaneous Approach (ICD-10-PCS; 2024-09-01)
DX: S72.452A Displaced supracondylar fracture without intracondylar extension of lower end of left femur, initial encounter for closed fracture (principal); I95.9 Hypotension, unspecified; Z68.43 Body mass index [BMI] 50.0-59.9, adult; E83.42 Hypomagnesemia; E87.1 Hypo-osmolality and hyponatremia; K76.0 Fatty (change of) liver, not elsewhere classified; S92.002A Unspecified fracture of left calcaneus, initial encounter for closed fracture; D62 Acute posthemorrhagic anemia; I10 Essential (primary) hypertension; E78.5 Hyperlipidemia, unspecified; R32 Unspecified urinary incontinence; J45.909 Unspecified asthma, uncomplicated; K27.9 Peptic ulcer, site unspecified, unspecified as acute or chronic, without hemorrhage or perforation; M19.90 Unspecified osteoarthritis, unspecified site; M85.80 Other specified disorders of bone density and structure, unspecified site; E11.9 Type 2 diabetes mellitus without complications; I48.0 Paroxysmal atrial fibrillation; E66.813 Obesity, class 3; N95.0 Postmenopausal bleeding; Z98.84 Bariatric surgery status; W06.XXXA Fall from bed, initial encounter; Y92.009 Unspecified place in unspecified non-institutional (private) residence as the place of occurrence of the external cause; Z79.01 Long term (current) use of anticoagulants; Z79.899 Other long term (current) drug therapy; Z88.0 Allergy status to penicillin; Z88.1 Allergy status to other antibiotic agents; Z88.8 Allergy status to other drugs, medicaments and biological substances; Z91.030 Bee allergy status

== ENCOUNTER → 2024-09-24 | Outpatient (CLI) | payer MEDICAID, OTHER ==
[~2024-09-24] MED LIST changes: +METO25TA4 PO; +MIRA3350 PO; +PERCOCET PO; +ROZE8TAB16 PO; +VANI1CRE5 TOP
== END ==
LOC: M SOG 07:50
PROVIDERS: ATTEND Orthopaedic Surgery
DX: Z53.9 Procedure and treatment not carried out, unspecified reason (principal); S72.452A Displaced supracondylar fracture without intracondylar extension of lower end of left femur, initial encounter for closed fracture

== ENCOUNTER → 2024-09-30 | Outpatient (CLI) | payer MEDICAID, OTHER | LOC: M SOG 07:52 | PROVIDERS: ATTEND Orthopaedic Surgery | DX: S72.452A Displaced supracondylar fracture without intracondylar extension of lower end of left femur, initial encounter for closed fracture (principal); Z53.9 Procedure and treatment not carried out, unspecified reason ==